=== PATIENT | male | born 1930 | race Caucasian/White ===

== ENCOUNTER 2018-04-27 15:55 | Observation (INO) | payer MEDICARE ==
[~2018-04-27] VITALS: Ht 160 cm; Wt 60.5 kg
[~2018-04-27 15:55] MED LIST: ALBU8I INH; AMLO2.5T OR; ASPI325T PO; CLOP75TA PO; LEVO500T3 OR; LEVO50TA51 PO; LORTA5 PO; LOSA25TA31 PO; MAGN400T PO; METO50TA PO; NITR.4 SL; PRED10PA PO; ROBIDM5S PO; SIMV80TA OR
[2018-04-27 16:05] VITALS: BP 143/65; PULSE 74; RESP 16; TEMP 98.7; O2SAT 91
[2018-04-27] MEDS ORDERED: ALBUAER3 INH (16:42)
[2018-04-27] MEDS ORDERED: METO50TA PO (16:42)
[2018-04-27] MEDS ORDERED: LOVA40TA PO (16:42)
[2018-04-27] MEDS ORDERED: ASPI81CH7 CHEW (16:42)
[2018-04-27] MEDS ORDERED: AMLO2.5T PO (16:42)
[2018-04-27] MEDS ORDERED: COUM5TAB PO (16:42)
[2018-04-27 16:56] LABS: AUTOMATED NEUTROPHIL # 16.7 TH/MM3 (1.8-7.7); BASOPHIL # 0.1 TH/MM3 (0-0.2); BASOPHIL % 0.4 % (0.0-2.0); EOSINOPHIL % 0.1 % (0.0-4.0); HEMATOCRIT 36.5 % (39.0-51.0); LYMPH % 5.1 % (9.0-44.0); MEAN CELL VOLUME 89.8 FL (80.0-100.0); MEAN CORPUSCULAR HEMOGLOBIN 29.5 PG (27.0-34.0); MEAN CORPUSCULAR HGB CONC 32.8 % (32.0-36.0); MEAN PLATELET VOLUME 8.3 FL (7.0-11.0); MONO % 6.8 % (0.0-8.0); MONOCYTE # 1.3 TH/MM3 (0-0.9); NEUT % 87.6 % (16.0-70.0); PLATELET COUNT 273 TH/MM3 (150-450); RED BLOOD COUNT 4.06 MIL/MM3 (4.50-5.90); RED CELL DISTRIBUTION WIDTH 15.5 % (11.6-17.2); WHITE BLOOD COUNT 19.1 TH/MM3 (4.0-11.0)
[2018-04-27 17:02] LABS: INTERNATIONAL NORMALIZED RATIO 2.1 RATIO; PROTHROMBIN TIME - PATIENT 21.4 SEC (9.8-11.6)
--- NOTE | 2018-04-27 17:07 | RADRPT ---
EXAM DATE: 04/27/2018 5:02 PM EDT AGE/SEX: 87 years / Male INDICATIONS: Fall from ladder landed on right shoulder. CLINICAL DATA: This is the patient's initial encounter. Patient reports that signs and symptoms have been present for 1 day and indicates a pain score of 10/10. MEDICAL/SURGICAL HISTORY: None. None. COMPARISON: [facility], CHEST SINGLE AP, 04/23/2013. . FINDINGS: 3 views of the right shoulder demonstrate a fracture through the surgical neck with medial displaceme nt of the distal fragment. Humeral head also appears are rotated approximately 90 degrees. Acromiocla vicular joint is intact with hypertrophic osteoarthritis. There is soft tissue swelling adjacent to t he proximal humerus fracture. Right chest demonstrates no acute abnormality. CONCLUSION: 1. There is a transverse fracture through the surgical neck of the proximal right humerus with media l displacement of the distal fragment and approximately 90 degrees of rotation of the humeral head. T here is adjacent soft tissue swelling. 2. 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 Electronically signed by: Armin Braxton MD 04/27/2018 5:06 PM EDT
[2018-04-27 17:10] LABS: BICARBONATE 24.2 MEQ/L (21.0-32.0); CALCIUM 8.2 MG/DL (8.5-10.1); CREATININE 0.93 MG/DL (0.60-1.30)
--- NOTE | 2018-04-27 17:39 | RADRPT ---
EXAM DATE: 04/27/2018 5:27 PM EDT AGE/SEX: 87 years / Male INDICATIONS: Trauma, fall from ladder CLINICAL DATA: This is the patient's initial encounter. Patient reports that signs and symptoms have been present for 1 day and indicates a pain score of 9/10. MEDICAL/SURGICAL HISTORY: Cardiovascular disease. Hypertension. None. RADIATION DOSE: 56.35 CTDI (mGy) COMPARISON: No prior [facility] exams available for comparison. TECHNIQUE: CT of the head without contrast. Using automated exposure control and adjustment of the mA and/or kV according to patient size, radiation dose was kept as low as reasonably achievable to ob tain optimal diagnostic quality images. FINDINGS: Cerebrum: The ventricles are normal for age. No evidence of midline shift, mass lesion, hemorrhage or acute infarction. No extraaxial fluid collections are seen. Posterior Fossa: The cerebellum and brainstem are intact. The 4th ventricle is midline. The cerebe llopontine angle is unremarkable. Extracranial: The visualized portion of the orbits is intact. Skull: The calvaria is intact. No evidence of skull fracture. CONCLUSION: 1. No acute intracranial abnormality identified. Electronically signed by: Yovani Ribeiro MD 04/27/2018 5:38 PM EDT
[2018-04-27] MEDS ORDERED: PHYTONADIONE 5 MG TAB PO ONE (17:45)
--- NOTE | 2018-04-27 17:49 | PD ---
HPI Chief Complaint: Fall Time Seen by Provider: 16:10 Travel History International Travel<30 days: No Contact w/Intl Traveler<30days: No Traveled to known affect area: No History of Present Illness HPI 87-year-old man, try to change a light bulb above his bed sitting on a ladder when he stepped to the bed the ladder fell over and they both fell to the ground. Hit his head. He complains of severe right shoulder pain and deformity. He is on warfarin. No LOC. Had been feeling well before this. No other complaints. History Past Medical History Narrative Medical CAD, history CABG COPD Hyperlipidemia Hypertension History cholecystectomy, On warfarin Social History Alcohol Use: No Tobacco Use: No (QUIT 30 YRS AGO) Allergies-Medications (Allergen,Severity, Reaction): Coded Allergies: No Known Allergies (Verified Adverse Reaction, Unknown, 04/27/18) Reported Meds & Prescriptions Reported Meds & Active Scripts Active Reported Lovastatin 40 Mg Tab 40 Mg PO DAILY Metoprolol Tartrate 50 Mg Tab 50 Mg PO BID Coumadin (Warfarin) 5 Mg Tab 5 Mg PO DAILY Aspirin Children's (Aspirin) 81 Mg Chew 81 Mg CHEW DAILY Amlodipine (Amlodipine Besylate) 2.5 Mg Tab 2.5 Mg PO DAILY Proair Hfa 8.5 GM Inh (Albuterol Sulfate) 90 Mcg/Act Aer 2 Puff INH Q6H PRN 108 mcg/actuation Review of Systems Except as stated in HPI: all other systems reviewed are Neg Physical Exam Narrative GENERAL: Well-appearing 87-year-old man, no acute distress. SKIN: Focused skin assessment warm/dry. HEAD: Atraumatic. Normocephalic. EYES: Pupils equal and round. No scleral icterus. No injection or drainage. ENT: No nasal bleeding or discharge. Mucous membranes pink and moist. NECK: Trachea midline. No JVD. CARDIOVASCULAR: Regular rate and rhythm. No murmur appreciated. RESPIRATORY: No accessory muscle use. Clear to auscultation. Breath sounds equal bilaterally. GASTROINTESTINAL: Abdomen soft, non-tender, nondistended. Hepatic and splenic margins not palpable. MUSCULOSKELETAL: Deformity of the right shoulder with large hematoma and swelling to the anterior right shoulder. Pain with any range of motion. Distally intact. NEUROLOGICAL: Awake and alert. No obvious cranial nerve deficits. Motor grossly within normal limits. Normal speech. PSYCHIATRIC: Appropriate mood and affect; insight and judgment normal. Data Data Last Documented VS Vital Signs Date Time Temp Pulse Resp B/P (MAP) Pulse Ox O2 Delivery O2 Flow Rate FiO2 04/27/18 16:09 96 Nasal Cannula 2.00 04/27/18 16:05 98.7 74 16 143/65 (91) Orders Orders Ct Brain W/O Iv Contrast(Rout) (04/27/18 ) Complete Blood Count With Diff (04/27/18 16:17) Basic Metabolic Panel (Bmp) (04/27/18 16:17) Prothrombin Time / Inr (Pt) (04/27/18 16:17) Iv Access Insert/Monitor (04/27/18 16:17) Electrocardiogram (04/27/18 ) Shoulder, Limited(2vws) (04/27/18 ) Phytonadione (Mephyton) (04/27/18 17:45) Labs Laboratory Tests Test 04/27/18 16:35 White Blood Count 19.1 TH/MM3 Red Blood Count 4.06 MIL/MM3 Hemoglobin 12.0 GM/DL Hematocrit 36.5 % Mean Corpuscular Volume 89.8 FL Mean Corpuscular Hemoglobin 29.5 PG Mean Corpuscular Hemoglobin Concent 32.8 % Red Cell Distribution Width 15.5 % Platelet Count 273 TH/MM3 Mean Platelet Volume 8.3 FL Neutrophils (%) (Auto) 87.6 % Lymphocytes (%) (Auto) 5.1 % Monocytes (%) (Auto) 6.8 % Eosinophils (%) (Auto) 0.1 % Basophils (%) (Auto) 0.4 % Neutrophils # (Auto) 16.7 TH/MM3 Lymphocytes # (Auto) 1.0 TH/MM3 Monocytes # (Auto) 1.3 TH/MM3 Eosinophils # (Auto) 0.0 TH/MM3 Basophils # (Auto) 0.1 TH/MM3 CBC Comment DIFF FINAL Differential Comment Prothrombin Time 21.4 SEC Prothromb Time International Ratio 2.1 RATIO Blood Urea Nitrogen 17 MG/DL Creatinine 0.93 MG/DL Random Glucose 121 MG/DL Calcium Level 8.2 MG/DL Sodium Level 139 MEQ/L Potassium Level 3.7 MEQ/L Chloride Level 104 MEQ/L Carbon Dioxide Level 24.2 MEQ/L Anion Gap 11 MEQ/L Estimat Glomerular Filtration Rate 77 ML/MIN MDM Medical Decision Making Medical Screen Exam Complete: Yes Emergency Medical Condition: Yes Interpretation(s) Head CT negative. Shoulder x-ray: Transverse fracture of the surgical neck of the proximal humerus with medial displacement distal fragment approximately 90 of rotation of the humeral head. There is adjacent soft tissue swelling. AC joint is intact with hypertrophic osteoarthritis. LABS: CBC is remarkable for moderate leukocytosis. BMP is unremarkable INR is 2.1 Differential Diagnosis Fall, fracture, dislocation, contusion, head injury, other Narrative Course Is an 87-year-old male presents emergency department with severe right shoulder injury. Impressive fracture with deformity and displacement with some abnormal rotation. I spoke with Dr. Nesbitt, on-call for orthopedics. Recommends admission n.p.o. after midnight and reverse INR. Dr. Richard to see in the a.m. May need surgical repair. Otherwise looks well. Pain appears to be for cardiac disease, do not see history of A. fib and family reports that he has had interrogation of his pacer with no A. fib. No history of DVT or PE. Looks otherwise well. Spoke with Dr. Hernandez, will admit patient. Diagnosis Primary Impression: Right humeral fracture Qualified Codes: S42.201A - Unspecified fracture of upper end of right humerus , initial encounter for closed fracture Admitting Information Admitting Physician Requests: Admit Sher Cote MD April 27, 2018 17:49
[2018-04-27] MEDS ORDERED: MORPHINE SULFATE 4 MG/ML INJ IV PUSH PRN (18:00)
[2018-04-27] MEDS ORDERED: ONDANSETRON ODT 4 MG TAB PO PRN (18:00)
[2018-04-27 18:15] VITALS: BP 139/61; PULSE 68; RESP 16; O2SAT 97
[2018-04-27] MEDS ORDERED: PHYTONADIONE 5 MG/SWFI 5 ML ORAL SYR PO ONE (18:30)
[2018-04-27 19:00] VITALS: BP 152/72; PULSE 70; RESP 18; TEMP 97.3; O2SAT 91
[2018-04-27 21:44] VITALS: O2SAT 94
[2018-04-27] MEDS ORDERED: SODIUM CHLORID 0.9% 500 ML IV PRN (21:45)
[2018-04-27] MEDS ORDERED: POVIDONE IODINE 5% (ANTISEPSIS KIT) 4 APPLICATIONS EACH NARE PRN (21:45)
[2018-04-27] MEDS ORDERED: CHLORHEXIDINE GLUCONATE 2 % 1 PACK (2 CLOTHS) TOPICAL PRN (21:45)
[2018-04-27] MEDS ORDERED: METOPROLOL TARTRATE 25 MG TAB PO PRN (21:45)
[2018-04-27] MEDS ORDERED: LACTATED RINGER'S 1000 ML IV PRN (21:45)
--- NOTE | 2018-04-27 21:58 | HHI.HP ---
HPI Service [facility] Primary Care Physician Mya Roche MD Admission Diagnosis Right humeral fracture Chief Complaint: right arm pain s/p fall Travel History International Travel<30 Days: No Contact w/Intl Traveler <30 Da: No Traveled to Known Affected Are: No History of Present Illness 87-year-old man presents to ER status post fall. He was apparently trying to change a light bulb above his bed sitting on a ladder in his bed when he stepped to the bed the ladder fell over and they both fell to the ground. Hit his head. He complains of severe right shoulder pain and deformity. He is on warfarin. No LOC. Had been feeling well before this. No other complaints. Shoulder x-ray reveals significantly angulated proximal humerus fracture. Orthopedics was consulted by ER physician and the education specialist requests patient be admitted to medicine service with orthopedic consult and likely surgical intervention tomorrow. Past Family Social History Past Medical History Angina Atherosclerosis of aorta Atrial fibrillation Chronic DVT CKD stage III CHF COPD Hyperlipidemia Hypertension Hypothyroidism Osteoarthritis of multiple joints Paroxysmal ventricular tachyarrhythmia History of pulmonary embolism Past Surgical History CABG 4 vessels September 2000 Cataract surgery Cholecystectomy Pilonidal cyst resection Vasectomy Tonsillectomy and adenoidectomy TURP Reported Medications Lovastatin 40 Mg Tab 40 Mg PO DAILY Metoprolol Tartrate 50 Mg Tab 50 Mg PO BID Coumadin (Warfarin) 5 Mg Tab 5 Mg PO DAILY Aspirin Children's (Aspirin) 81 Mg Chew 81 Mg CHEW DAILY Amlodipine (Amlodipine Besylate) 5 mg PO DAILY Proair Hfa 8.5 GM Inh (Albuterol Sulfate) 90 Mcg/Act Aer 2 Puff INH Q6H PRN 108 mcg/actuation Advair Diskus 250/50 1 puff twice daily as needed Furosemide 20 mg daily Levothyroxine 50 mcg daily Nitroglycerin 0.4 mg sublingual tablet 1 sublingual as needed for chest pain Vitamin D 1000 units 2 tablets daily Warfarin 2.5 mg daily except 5 mg each Thursday and Thursday Allergies: Coded Allergies: No Known Allergies (Verified Allergy, Unknown, 04/27/18) Family History Mother had coronary artery disease and stroke but overall family history noncontributory at this point Social History 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 SKIN: No rashes, ecchymoses or lesions. Cool and dry. HEAD: Left parietal scalp ecchymosis. Normocephalic. No temporal or scalp tenderness. EYES: Pupils equal round and reactive. Extraocular motions intact. No scleral icterus. No injection or drainage. ENT: Nose without bleeding, purulent drainage or septal hematoma. Throat without erythema, tonsillar hypertrophy or exudate. Uvula midline. Airway patent. NECK: Trachea midline. No JVD or lymphadenopathy. Supple, nontender, no meningeal signs. CARDIOVASCULAR: Regular rate and rhythm without murmurs, gallops, or rubs. RESPIRATORY: Clear to auscultation. Breath sounds equal bilaterally. No wheezes , rales, or rhonchi. GASTROINTESTINAL: Abdomen soft, non-tender, nondistended. No hepato-splenomegaly , or palpable masses. No guarding. MUSCULOSKELETAL: BUE with ecchymosis, right shoulder with edema, ttp and deformity, moves all fingers well, sensation to touch intact all fingers. No calf tenderness. NEUROLOGICAL: Awake and alert. Cranial nerves II through XII intact. Motor and sensory grossly within normal limits. Five out of 5 muscle strength in all muscle groups. Normal speech. Laboratory Laboratory Tests Test 04/27/18 16:35 White Blood Count 19.1 Red Blood Count 4.06 Hemoglobin 12.0 Hematocrit 36.5 Mean Corpuscular Volume 89.8 Mean Corpuscular Hemoglobin 29.5 Mean Corpuscular Hemoglobin Concent 32.8 Red Cell Distribution Width 15.5 Platelet Count 273 Mean Platelet Volume 8.3 Neutrophils (%) (Auto) 87.6 Lymphocytes (%) (Auto) 5.1 Monocytes (%) (Auto) 6.8 Eosinophils (%) (Auto) 0.1 Basophils (%) (Auto) 0.4 Neutrophils # (Auto) 16.7 Lymphocytes # (Auto) 1.0 Monocytes # (Auto) 1.3 Eosinophils # (Auto) 0.0 Basophils # (Auto) 0.1 CBC Comment DIFF FINAL Differential Comment Prothrombin Time 21.4 Prothromb Time International Ratio 2.1 Blood Urea Nitrogen 17 Creatinine 0.93 Random Glucose 121 Calcium Level 8.2 Sodium Level 139 Potassium Level 3.7 Chloride Level 104 Carbon Dioxide Level 24.2 Anion Gap 11 Estimat Glomerular Filtration Rate 77 Result Diagram: 04/27/18 1635 04/27/18 1635 Imaging Last 72 hours Impressions Shoulder X-Ray 04/27/18 0000 Signed Impressions: CONCLUSION: 1. There is a transverse fracture through the surgical neck of the proximal ri ght humerus with medial displacement of the distal fragment and approximately 9 0 degrees of rotation of the humeral head. There is adjacent soft tissue swelli ng. 2. 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 Head CT 04/27/18 0000 Signed Impressions: CONCLUSION: 1. No acute intracranial abnormality identified. Caprini VTE Risk Assessment Caprini VTE Risk Assessment: Mod/High Risk (score >= 2) Caprini Risk Assessment Model Point Value = 1 Point Value = 2 Point Value = 3 Point Value = 5 Age 41-60 Minor surgery BMI > 25 kg/m2 Swollen legs Varicose veins or History of unexplained or recurrent spontaneous Oral contraceptives or hormone replacement Sepsis (< 1 month) Serious lung disease, including pneumonia (< 1 month) Abnormal pulmonary function Acute myocardial infarction Congestive heart failure (< 1 month) History of inflammatory bowel disease Medical patient at bed rest Age 61-74 Arthroscopic surgery Major open surgery (> 45 min) Laparoscopic surgery (> 45 min) Malignancy Confined to bed (> 72 hours) Immobilizing plaster cast Central venous access Age >= 75 History of VTE Family history of VTE Factor V Leiden Prothrombin [id number] Lupus anticoagulant Anticardiolipin antibodies Elevated serum homocysteine Heparin-induced thrombocytopenia Other congenital or acquired thrombophilia Stroke (< 1 month) Elective arthroplasty Hip, pelvis, or leg fracture Acute spinal cord injury (< 1 month) Prophylaxis Regimen Total Risk Factor Score Risk Level Prophylaxis Regimen 0-1 Low Early ambulation 2 Moderate Order ONE of the following: *Sequential Compression Device (SCD) *Heparin 5000 units SQ BID 3-4 Higher Order ONE of the following medications: *Heparin 5000 units SQ TID *Enoxaparin/Lovenox 40 mg SQ daily (WT < 150 kg, CrCl > 30 mL/min) *Enoxaparin/Lovenox 30 mg SQ daily (WT < 150 kg, CrCl > 10-29 mL/min) *Enoxaparin/Lovenox 30 mg SQ BID (WT < 150 kg, CrCl > 30 mL/min) AND/OR *Sequential Compression Device (SCD) 5 or more Highest Order ONE of the following medications: *Heparin 5000 units SQ TID (Preferred with Epidurals) *Enoxaparin/Lovenox 40 mg SQ daily (WT < 150 kg, CrCl > 30 mL/min) *Enoxaparin/Lovenox 30 mg SQ daily (WT < 150 kg, CrCl > 10-29 mL/min) *Enoxaparin/Lovenox 30 mg SQ BID (WT < 150 kg, CrCl > 30 mL/min) AND *Sequential Compression Device (SCD) Assessment and Plan Problem List: (1) Right humeral fracture ICD Codes: S42.301A - Unspecified fracture of shaft of humerus, right arm, initial encounter for closed fracture Status: Acute Plan: Orthopedics consult. Continue pain medication. Management per Ortho. (2) Leukocytosis ICD Codes: D72.829 - Elevated white blood cell count, unspecified Status: Acute Plan: Likely stress reaction due to pain associated with fracture. Will follow up CBC tomorrow. (3) Atrial fibrillation ICD Codes: I48.91 - Unspecified atrial fibrillation Plan: INR therapeutic. INR will be corrected for anticipated surgery. (4) Hypertension ICD Codes: I10 - Essential (primary) hypertension Plan: Continue outpatient meds as tolerated. (5) COPD (chronic obstructive pulmonary disease) ICD Codes: J44.9 - Chronic obstructive pulmonary disease, unspecified Status: Chronic Plan: Duo nebs and supplemental oxygen as needed (6) Hypothyroidism ICD Codes: E03.9 - Hypothyroidism, unspecified Status: Chronic Plan: Continue outpatient meds. TSH was 6.2 in November. Will repeat TSH Code Status full Discussed Condition With Pt, his and ER provider Problem Qualifiers (1) Right humeral fracture: Qualified Codes: S42.201A - Unspecified fracture of upper end of right humerus , initial encounter for closed fracture (2) Atrial fibrillation: Qualified Codes: I48.2 - Chronic atrial fibrillation (3) Hypertension: Qualified Codes: I10 - Essential (primary) hypertension Mukund Hernandez MD PhD April 27, 2018 21:58
[2018-04-27] MEDS ORDERED: RESP: ALBUTEROL 2.5 MG/IPRATROPIUM 0.5 MG NEB (PRN) NEB (22:00)
[2018-04-27] MEDS ORDERED: TEMAZEPAM 15 MG CAP PO SCH (22:30)
[2018-04-27] MEDS ORDERED: KETOROLAC TROMETHAMINE 30 MG/ML (IVP) VIAL IV PUSH SCH (22:30)
[2018-04-28] VITALS (8 sets, daily range): BP systolic 101–145; BP diastolic 52–64; PULSE 62–77; RESP 17–18; TEMP 97.6–98.4; O2SAT 92–99
[2018-04-28] MEDS ORDERED: METOPROLOL TARTRATE 50 MG TAB PO SCH ×2 (06:30→21:00)
--- NOTE | 2018-04-28 06:51 | PD.ORT.PN ---
Subjective Subjective Remarks Fall at home yesterday when changing light bulb. He fell from the second or third round of his ladder. He had a proximal humerus fracture in the right side and also complains about right wrist pain. No other orthopedic complaints. He does have a history of a quadruple bypass and also has an ICD monitor. He states that a few nights ago that the ICD monitor woke him up twice when it fired. He was seeing Dr. Mina as his physical education instructor but now is seeing Dr. Mello This morning his INR is 2.1. Objective Vitals Vital Signs Date Time Temp Pulse Resp B/P (MAP) Pulse Ox O2 Delivery O2 Flow Rate FiO2 04/28/18 03:50 97.7 76 18 113/52 (72) 97 04/28/18 00:03 97.8 76 18 101/54 (70) 94 04/27/18 23:21 18 04/27/18 21:44 Nasal Cannula 2.00 04/27/18 19:20 18 04/27/18 19:00 97.3 70 18 152/72 (98) 91 04/27/18 18:15 68 16 139/61 (87) 97 Room Air 04/27/18 16:09 96 Nasal Cannula 2.00 04/27/18 16:05 98.7 74 16 143/65 (91) 91 I/O 04/27/18 04/27/18 04/27/18 04/28/18 04/28/18 04/28/18 07:00 15:00 23:00 07:00 15:00 23:00 Intake Total 120 ml Balance 120 ml Intake Oral 120 ml # Voids 0 # Bowel Movements 0 Result Diagram: 04/27/18 1635 04/27/18 1635 Other Results Laboratory Tests Test 04/27/18 16:35 Prothromb Time International Ratio 2.1 RATIO Prothrombin Time 21.4 SEC (9.8-11.6) Imaging Last 72 hours Impressions Shoulder X-Ray 04/27/18 0000 Signed Impressions: CONCLUSION: 1. There is a transverse fracture through the surgical neck of the proximal ri ght humerus with medial displacement of the distal fragment and approximately 9 0 degrees of rotation of the humeral head. There is adjacent soft tissue swelli ng. 2. 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 Head CT 04/27/18 0000 Signed Impressions: CONCLUSION: 1. No acute intracranial abnormality identified. Objective Remarks Left upper extremity: Full range of motion neurovascularly intact Bilateral lower extremities full range of motion and neurovascularly intact Right upper extremity: Significant bruising and swelling over shoulder. Skin is intact. Pain to palpation. No pain with elbow palpation or slight movement. He has tenderness over the ulnar styloid and minimal tenderness over the radius. He does have bruising over the wrist. Distally he has intact sensation of the radial ulnar and median nerve distributions with good capillary refills. He is able to fully extend his fingers make a fist Assessment & Plan Assessment and Plan Severely comminuted right proximal humerus fracture Orthotec for sling and swath and nonweightbearing right upper extremity INR is 2.1 so we will resume diet this morning and make n.p.o. after midnight Cardiology will evaluate for surgical risk and for clearance Vitamin K will be given this morning and repeat INR will be obtained this afternoon at 3:00 Both surgical and nonsurgical treatment of the shoulder have been discussed. With the displacement of the shoulder it is unlikely that the shoulder will heal appropriately. Surgical fixation will be either an ORIF or possible shoulder hemiarthroplasty. We need his INR corrected to 1.3 or less to proceed with surgery. Edgardo Lino Jr. April 28, 2018 06:51
[2018-04-28] MEDS ORDERED: PHYTONADIONE 10 MG/ML VIAL SQ ONE (08:00)
[2018-04-28 08:11] LABS: AUTOMATED NEUTROPHIL # 12.5 TH/MM3 (1.8-7.7); BASOPHIL # 0.1 TH/MM3 (0-0.2); BASOPHIL % 0.5 % (0.0-2.0); EOSINOPHIL % 0.3 % (0.0-4.0); HEMATOCRIT 27.5 % (39.0-51.0); HEMOGLOBIN 9.3 GM/DL (13.0-17.0); LYMPHOCYTE # 1.9 TH/MM3 (1.0-4.8); MEAN CELL VOLUME 88.1 FL (80.0-100.0); MEAN CORPUSCULAR HEMOGLOBIN 29.9 PG (27.0-34.0); MEAN CORPUSCULAR HGB CONC 33.9 % (32.0-36.0); MEAN PLATELET VOLUME 8.8 FL (7.0-11.0); MONO % 8.8 % (0.0-8.0); MONOCYTE # 1.4 TH/MM3 (0-0.9); NEUT % 78.4 % (16.0-70.0); PLATELET COUNT 212 TH/MM3 (150-450); RED BLOOD COUNT 3.13 MIL/MM3 (4.50-5.90); RED CELL DISTRIBUTION WIDTH 15.2 % (11.6-17.2); WHITE BLOOD COUNT 15.9 TH/MM3 (4.0-11.0)
[2018-04-28 08:17] LABS: INTERNATIONAL NORMALIZED RATIO 1.5 RATIO; PROTHROMBIN TIME - PATIENT 15.4 SEC (9.8-11.6)
[2018-04-28] MEDS: METOPROLOL TARTRATE 50 MG TAB PO SCH ×2 (08:21→20:58)
--- NOTE | 2018-04-28 08:27 | RADRPT ---
EXAM DATE: 04/28/2018 8:04 AM EDT AGE/SEX: 87 years / Male INDICATIONS: Right wrist pain. Patient fell. CLINICAL DATA: This is the patient's subsequent encounter. Patient reports that signs and symptoms h ave been present for 2 days and indicates a pain score of 6/10. MEDICAL/SURGICAL HISTORY: Chronic obstructive pulmonary disease. Cardiovascular disease. Hyper tension. CABG. Cholecystectomy. COMPARISON: No prior [facility] exams available for comparison. FINDINGS: Extensive vascular calcifications are noted. Bones are osteopenic. Fracture radial styloid is present extending into the radiocarpal joint and reasonable alignment. Ulnar styloid fracture is noted. Carp us intact. CONCLUSION: Osteopenia with nondisplaced intra-articular radial styloid fracture. Nondisplaced ulnar styloid frac ture. Electronically signed by: Brooks Ribeiro MD 04/28/2018 8:25 AM EDT
[2018-04-28] MEDS ORDERED: ACETAMINOPHEN/HYDROcodone 325 MG/5 MG TAB PO PRN ×2 (08:30)
--- NOTE | 2018-04-28 08:54 | MB ---
cc: Yang Richard MD DATE: 04/28/2018 REASON FOR CONSULTATION: Displaced right proximal humerus fracture. CONSULTING PHYSICIAN: Dr. Archibald HISTORY OF PRESENT ILLNESS: Stone is an 87-year-old male who had a mechanical fall. He was trying to change a light bulb above his bed. He was on a step ladder getting onto the bed when he fell. He landed on his right shoulder. He did hit his head. He had severe right shoulder pain. He denies dizziness, syncope, or loss of consciousness. He presented to the emergency room where x-rays reveal a completely displaced right proximal humerus fracture. Currently, his only complaint is his right shoulder. Pain is worse with movement and is improved with rest. He is chronically on Coumadin. PAST MEDICAL HISTORY: Illnesses, coronary artery disease, atrial fibrillation, history of DVT, renal failure, CHF, hypertension, hypothyroidism, history of ventricular tachycardia, history of pulmonary embolism. PAST SURGICAL HISTORY: Coronary artery bypass, cataract surgery, cholecystectomy, vasectomy, tonsillectomy, adenoidectomy. MEDICATIONS: 1. Lovastatin. 2. Metoprolol. 3. Coumadin. 4. Aspirin. 5. Amlodipine. 6. ProAir. 7. Advair. 8. Lasix. 9. Levothyroxine. 10. Nitroglycerin. 11. Vitamin D. 12. Coumadin. ALLERGIES: NO KNOWN DRUG ALLERGIES. FAMILY HISTORY: Positive for coronary artery disease and stroke in his mother. 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 He quit smoking in 1973. He denies alcohol use. He is and lives with his . REVIEW OF SYSTEMS: The patient denies headache, visual changes, neck pain, chest pain, shortness of breath, abdominal pain, nausea, vomiting, recent weight loss, fevers or chills, numbness or tingling of extremities. He complains of right shoulder pain. LABORATORY DATA: The patient has a white blood cell count of 15.9, hematocrit 27.5, platelet count 212. INR is 1.5, potassium 3.7, creatinine is 0.93. IMAGING: X-rays of the right shoulder were reviewed. X-rays reveal a displaced right proximal humerus fracture. PHYSICAL EXAMINATION: GENERAL: The patient is a pleasant 87-year-old male who is in no acute distress. He is awake and alert. He is alert and oriented x 3. He appears well-developed and well-nourished. His is at bedside. VITAL SIGNS: Temperature 97.7, pulse 76, respirations 18, blood pressure 113/52, O2 saturation 97% on 2 liters nasal cannula. HEAD: The patient is normocephalic. EYES: Pupils are equal. NECK: Soft and nontender. The trachea is in the midline. ABDOMEN: Soft, nontender, nondistended. EXTREMITIES: Examination of the right arm reveals significant swelling and bruising around the shoulder. He has pain with any shoulder motion. He has minimal pain on his elbow, wrist or fingers. He has intact sensation in all fingers. Radial pulses are palpable. Examination of the left arm reveals no pain with shoulder, elbow or wrist motion. Skin is intact. Radial pulses palpable. Sensation is intact. Examination of bilateral lower extremities reveals no pain with hip, knee or ankle motion. Skin is intact. Dorsalis pedis pulses are palpable. Sensation intact to both feet. IMPRESSION: 1. Displaced right proximal humerus fracture. 2. History of atrial fibrillation. 3. History of ventricular tachycardia. 4. Pacemaker with defibrillator in place. 5. Anticoagulation with Coumadin. 6. Congestive heart failure. 7. Chronic obstructive pulmonary disease. 8. Hypertension. 9. Possible osteoporosis. PLAN: Treatment options were discussed with the patient. At this point, I discussed surgical and nonsurgical options. Given the displacement of the fracture, I do not think that the patient would likely heal this injury as it is. I gave him the option of conservative treatment to see if fracture will heal versus surgical open reduction internal fixation. He states that the pain is excruciating and he would like to have surgery. Cardiology will be consulted for clearance. The patient will need to have his INR corrected and normalized prior to surgery, risks of surgery include bleeding, infection, injuries to arteries, nerves or blood vessels, nonunion, malunion, painful hardware, need for shoulder replacement, as well as medical complications including blood clot, stroke, heart attack and . All questions were answered. I discussed with him the possibility of open reduction, internal fixation of fracture versus possible shoulder hemiarthroplasty. The risks and benefits of each were discussed and consent was obtained. Postoperatively, I will place the patient on calcium and vitamin D. A mid-level provider in my office, nurse practitioner or PA, may see this patient on a follow-up basis and continue to implement the objective of this plan including: Starting or adjusting medications, injections of muscle, tendon, bursa or joints, cast application, orthotic or brace application, physical therapy, further radiographic studies including x-ray, MRI, CT, ultrasounds or bone scan, vascular studies, neurologic studies, or other specialist consultations, and proceeding with surgical management as appropriate. MD JOSH Bay/REBEKA , 08:34 AM , 08:54 AM
--- NOTE | 2018-04-28 10:40 | MB ---
cc: Jigar Mina MD DATE: 04/28/2018 HISTORY OF PRESENT ILLNESS: This is an 87-year-old gentleman who presents to the hospital after suffering a mechanical fall. He was trying to change a light bulb, fell, struck his shoulder and has a displaced fracture of his right humerus. I have been asked to see him in preop risk stratification for open reduction and internal fixation of his wound. He has a history of atrial fibrillation, paroxysmal ventricular tachycardia, as well as pulmonary emboli in the past. He has also had coronary artery disease with a CABG x 4 in 09/2000. He has actually, from a cardiovascular standpoint, been doing well. He complains of no problems with chest pain or shortness of breath. No lightheadedness or dizziness has been present and over the past 1 to 2 years, he has had no significant problems with ventricular tachycardia. He has been well maintained on Coumadin therapy for anticoagulation, as well as metoprolol, lovastatin, baby aspirin, Advair, furosemide and vitamins. ALLERGIES: NONE. SOCIAL HISTORY: The patient does not smoke or drink. PHYSICAL EXAMINATION: GENERAL: He is awake and alert. He is in some mild distress with his right shoulder pain. VITAL SIGNS: His blood pressure is 115/70, pulse 70 and regular. NECK: There is no neck vein distention. LUNGS: Clear. CARDIOVASCULAR: Reveals a regular rate and rhythm. No significant murmur is noted and there is no gallop. ABDOMEN: Soft. There is no tenderness or organomegaly. ASSESSMENT AND PLAN: The patient is a reasonable risk for surgery. He does have a history of pulmonary emboli and surgery is tentatively scheduled for tomorrow after holding his warfarin to allow his clotting profile to be within normal limits. Certainly I think it would be prudent to begin him on oral anticoagulants such as Pradaxa or Eliquis as soon as possible postoperatively to guard against any possible recurrent pulmonary emboli. I will be happy to follow along with you. MD GI Gibson/REBEKA , 10:22 AM , 10:38 AM
--- NOTE | 2018-04-28 11:15 | HHI.PR ---
Subjective Remarks No new complaints today Pt with right arm in sling, he had vomiting with Morphine IV last night, pain meds changed this morning. Objective Vitals Vital Signs Date Time Temp Pulse Resp B/P (MAP) Pulse Ox O2 Delivery O2 Flow Rate FiO2 04/28/18 08:06 98 Nasal Cannula 2.00 04/28/18 08:00 97.9 77 17 112/56 (74) 93 04/28/18 03:50 97.7 76 18 113/52 (72) 97 04/28/18 00:03 97.8 76 18 101/54 (70) 94 04/27/18 23:21 18 04/27/18 21:44 Nasal Cannula 2.00 04/27/18 19:20 18 04/27/18 19:00 97.3 70 18 152/72 (98) 91 04/27/18 18:15 68 16 139/61 (87) 97 Room Air 04/27/18 16:09 96 Nasal Cannula 2.00 04/27/18 16:05 98.7 74 16 143/65 (91) 91 Result Diagram: 04/28/18 0530 04/27/18 1635 Other Results Laboratory Tests Test 04/27/18 16:35 04/28/18 05:30 White Blood Count 19.1 TH/MM3 15.9 TH/MM3 Red Blood Count 4.06 MIL/MM3 3.13 MIL/MM3 Hemoglobin 12.0 GM/DL 9.3 GM/DL Hematocrit 36.5 % 27.5 % Mean Corpuscular Volume 89.8 FL 88.1 FL Mean Corpuscular Hemoglobin 29.5 PG 29.9 PG Mean Corpuscular Hemoglobin Concent 32.8 % 33.9 % Red Cell Distribution Width 15.5 % 15.2 % Platelet Count 273 TH/MM3 212 TH/MM3 Mean Platelet Volume 8.3 FL 8.8 FL Neutrophils (%) (Auto) 87.6 % 78.4 % Lymphocytes (%) (Auto) 5.1 % 12.0 % Monocytes (%) (Auto) 6.8 % 8.8 % Eosinophils (%) (Auto) 0.1 % 0.3 % Basophils (%) (Auto) 0.4 % 0.5 % Neutrophils # (Auto) 16.7 TH/MM3 12.5 TH/MM3 Lymphocytes # (Auto) 1.0 TH/MM3 1.9 TH/MM3 Monocytes # (Auto) 1.3 TH/MM3 1.4 TH/MM3 Eosinophils # (Auto) 0.0 TH/MM3 0.0 TH/MM3 Basophils # (Auto) 0.1 TH/MM3 0.1 TH/MM3 CBC Comment DIFF FINAL DIFF FINAL Differential Comment Prothrombin Time 21.4 SEC 15.4 SEC Prothromb Time International Ratio 2.1 RATIO 1.5 RATIO Blood Urea Nitrogen 17 MG/DL Creatinine 0.93 MG/DL Random Glucose 121 MG/DL Calcium Level 8.2 MG/DL Sodium Level 139 MEQ/L Potassium Level 3.7 MEQ/L Chloride Level 104 MEQ/L Carbon Dioxide Level 24.2 MEQ/L Anion Gap 11 MEQ/L Estimat Glomerular Filtration Rate 77 ML/MIN Thyroid Stimulating Hormone 3rd Gen 3.440 uIU/ML Imaging Last 72 hours Impressions Shoulder X-Ray 04/27/18 0000 Signed Impressions: CONCLUSION: 1. There is a transverse fracture through the surgical neck of the proximal ri ght humerus with medial displacement of the distal fragment and approximately 9 0 degrees of rotation of the humeral head. There is adjacent soft tissue swelli ng. 2. 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 Head CT 04/27/18 0000 Signed Impressions: CONCLUSION: 1. No acute intracranial abnormality identified. Objective Remarks General: NAD, AAOx3 Chest: CTA Cardiac: Regular Abd: +BS, soft ND/NT Ext: Right UE in sling A/P Problem List: (1) Right humeral fracture ICD Codes: S42.301A - Unspecified fracture of shaft of humerus, right arm, initial encounter for closed fracture Status: Acute Plan: Displaced right humerus fracture s/p mechanical fall - Pt is an 87 y/o male with atrial fibrillation on chronic anticoagulation with Coumadin, paroxysmal ventricular tachycardia, hx of DVT/pulmonary emboli in the past, and coronary artery disease with a CABG x 4 in 09/2000. - Pt presented to the ED at [facility] on 04/27/18 after suffering a mechanical fall. He was trying to change a light bulb, fell, and struck his shoulder - Pt was found to have a displaced fracture of his right humerus. - Orthopedic surgery is following. - They consulted Cardiology for pre-operative clearance for risk stratification for open reduction and internal fixation of his wound. - Pt had vomiting with Morphine IV, pain control changed to [place] 1-2 tablets Q4H PRN pain - IS - Constipation precautions - DVT prophylaxis with SCDs for now (2) Leukocytosis ICD Codes: D72.829 - Elevated white blood cell count, unspecified Status: Acute Plan: - Pts labs at admission with WBC count 19.1 felt to likely be a stress reaction due to pain associated with fracture. - Repeat CBC on 04/28 with WBC count 15.9 (3) Atrial fibrillation ICD Codes: I48.91 - Unspecified atrial fibrillation Plan: - Pt with Jacinto aggarwal on chronic anticoagulation with Coumadin. - INR therapeutic at admission at 2.1 - Pt was given Vitamin K 5mg po x 2 doses and 10mg SQ x 1 - INR 1.5 on 04/28. - Cont. Metoprolol 50mg BID - Monitor BP as it has been low/normal (4) Hypertension ICD Codes: I10 - Essential (primary) hypertension Plan: - Pt continued on metoprolol and BP low/normal - Monitor closely (5) COPD (chronic obstructive pulmonary disease) ICD Codes: J44.9 - Chronic obstructive pulmonary disease, unspecified Status: Chronic Plan: - Duo nebs Q6H PRN - Supplemental oxygen as needed (6) Hypothyroidism ICD Codes: E03.9 - Hypothyroidism, unspecified Status: Chronic Plan: - Pt is on Levothyroxine 50mcg po daily as an outpt, this will be continued. - TSH was 6.2 in November. - Repeat TSH 3.440 on 04/27 Assessment and Plan Patient examined. Assessment and plan formulated with Amber Sevilla PA-C. I agree with the above. reversing inr. going for surgery tomorrow on humerus fx. Problem Qualifiers (1) Right humeral fracture: Qualified Codes: S42.201A - Unspecified fracture of upper end of right humerus , initial encounter for closed fracture (2) Atrial fibrillation: Qualified Codes: I48.2 - Chronic atrial fibrillation (3) Hypertension: Qualified Codes: I10 - Essential (primary) hypertension Amber Sevilla April 28, 2018 11:15 Everardo Archibald MD April 28, 2018 14:57
[2018-04-28] MEDS ORDERED: LEVO50TA4 PO (11:20)
[2018-04-28] MEDS ORDERED: ADVA250A INH (11:20)
--- NOTE | 2018-04-28 14:11 | EKG ---
Date Performed: 04/27/2018 Time Performed: 18:08:18 PTAGE: 87 years EKG: Sinus rhythm WITH OCCASIONAL VENTRICULAR PREMATURE COMPLEXES WITH OCCASIONAL SUPRAVENTRICULAR PREMATURE COMPLEXES ST DEVIATION AND MODERATE T-WAVE ABNORMALITY, CONSIDER INFERIOR ISCHEMIA ABNORMAL ECG PREVIOUS TRACING : 04/22/2013 05.33 DOCTOR: Sher Phan Interpretating Date/Time 04/28/2018 14:10:14
[2018-04-28 18:03] LABS: INTERNATIONAL NORMALIZED RATIO 1.3 RATIO; PROTHROMBIN TIME - PATIENT 13.1 SEC (9.8-11.6)
[2018-04-28] MEDS: BUDESONIDE-FORMOTEROL 160/4.5 MCG INHALER INH SCH (21:56)
[2018-04-29] VITALS (7 sets, daily range): BP systolic 108–192; BP diastolic 55–84; PULSE 52–65; RESP 16–18; TEMP 97.3–98; O2SAT 93–100
[2018-04-29] MEDS: LEVOTHYROXINE SODIUM 50 MCG TAB PO SCH (06:25)
[2018-04-29] MEDS: METOPROLOL TARTRATE 50 MG TAB PO SCH ×2 (06:25→21:00)
--- NOTE | 2018-04-29 06:42 | PD.ORT.PN ---
Subjective Subjective Remarks Resting comfortably. No new complaints. INR level yesterday afternoon draw was 1.3. Objective Vitals Vital Signs Date Time Temp Pulse Resp B/P (MAP) Pulse Ox O2 Delivery O2 Flow Rate FiO2 04/29/18 04:00 97.8 65 18 131/57 (81) 97 04/29/18 00:00 97.9 62 18 108/55 (72) 93 04/28/18 21:56 18 04/28/18 21:45 Nasal Cannula 2.00 04/28/18 19:00 98.4 71 18 134/64 (87) 99 04/28/18 17:16 93 Nasal Cannula 2.00 04/28/18 16:00 97.6 62 18 145/56 (85) 93 04/28/18 12:00 97.8 67 17 105/54 (71) 92 04/28/18 08:06 98 Nasal Cannula 2.00 04/28/18 08:00 97.9 77 17 112/56 (74) 93 I/O 04/28/18 04/28/18 04/28/18 04/29/18 04/29/18 04/29/18 07:00 15:00 23:00 07:00 15:00 23:00 Intake Total 120 ml 850 ml 420 ml Balance 120 ml 850 ml 420 ml Intake Oral 120 ml 850 ml 420 ml # Voids 0 3 5 # Bowel Movements 0 1 0 Result Diagram: 04/28/18 0530 04/27/18 4085 Other Results Laboratory Tests Test 04/28/18 17:44 Prothromb Time International Ratio 1.3 RATIO Prothrombin Time 13.1 SEC (9.8-11.6) Imaging Last 72 hours Impressions Wrist X-Ray 04/28/18 0000 Signed Impressions: CONCLUSION: Osteopenia with nondisplaced intra-articular radial styloid fracture. Nondispla [place]rington ulnar styloid fracture. Shoulder X-Ray 04/27/18 0000 Signed Impressions: CONCLUSION: 1. There is a transverse fracture through the surgical neck of the proximal ri ght humerus with medial displacement of the distal fragment and approximately 9 0 degrees of rotation of the humeral head. There is adjacent soft tissue swelli ng. 2. 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 Head CT 04/27/18 0000 Signed Impressions: CONCLUSION: 1. No acute intracranial abnormality identified. Last 72 hours Impressions Shoulder X-Ray 04/27/18 0000 Signed Impressions: CONCLUSION: 1. There is a transverse fracture through the surgical neck of the proximal ri ght humerus with medial displacement of the distal fragment and approximately 9 0 degrees of rotation of the humeral head. There is adjacent soft tissue swelli ng. 2. 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 Head CT 04/27/18 0000 Signed Impressions: CONCLUSION: 1. No acute intracranial abnormality identified. Objective Remarks Left upper extremity: Full range of motion neurovascularly intact Bilateral lower extremities full range of motion and neurovascularly intact Right upper extremity: Significant bruising and swelling over shoulder. Skin is intact. Pain to palpation. No pain with elbow palpation or slight movement. He has tenderness over the ulnar styloid and minimal tenderness over the radius. He does have bruising over the wrist. Distally he has intact sensation of the radial ulnar and median nerve distributions with good capillary refills. He is able to fully extend his fingers make a fist Assessment & Plan Assessment and Plan Severely comminuted right proximal humerus fracture sling and swath and nonweightbearing right upper extremity INR is 1.3 , last night and redraw was done just a half an hour ago Cardiology has given medical clearance with moderate risk N.p.o. We will plan on surgery this morning for open reduction internal fixation versus right shoulder hemiarthroplasty. We will continue nonoperative treatment of the right radial styloid fracture. He will be splinted postoperatively. Edgardo Lino Jr. April 29, 2018 06:42
[2018-04-29 07:01] LABS: INTERNATIONAL NORMALIZED RATIO 1.1 RATIO; PROTHROMBIN TIME - PATIENT 11.3 SEC (9.8-11.6)
[2018-04-29] MEDS ORDERED: GENTAMICIN SULFATE 80 MG/2 ML VIAL ONE (07:06)
[2018-04-29] MEDS ORDERED: ceFAZolin INJ 1,000 MG VIAL ONE (07:06)
[2018-04-29] MEDS ORDERED: VANCOMYCIN HCL 1000 MG VIAL ONE (07:06)
[2018-04-29] MEDS ORDERED: SODIUM CHLOR 0.9% 250 ML INJ 250 ML ONE (07:07)
[2018-04-29 07:08] LABS: AUTOMATED NEUTROPHIL # 10.5 TH/MM3 (1.8-7.7); BASOPHIL # 0.1 TH/MM3 (0-0.2); BASOPHIL % 0.5 % (0.0-2.0); EOSINOPHIL # 0.2 TH/MM3 (0-0.4); EOSINOPHIL % 1.2 % (0.0-4.0); HEMATOCRIT 24.5 % (39.0-51.0); HEMOGLOBIN 8.3 GM/DL (13.0-17.0); LYMPH % 11.4 % (9.0-44.0); LYMPHOCYTE # 1.5 TH/MM3 (1.0-4.8); MEAN CELL VOLUME 89.8 FL (80.0-100.0); MEAN CORPUSCULAR HEMOGLOBIN 30.3 PG (27.0-34.0); MEAN CORPUSCULAR HGB CONC 33.8 % (32.0-36.0); MEAN PLATELET VOLUME 8.8 FL (7.0-11.0); MONO % 9.3 % (0.0-8.0); MONOCYTE # 1.3 TH/MM3 (0-0.9); NEUT % 77.6 % (16.0-70.0); PLATELET COUNT 171 TH/MM3 (150-450); RED BLOOD COUNT 2.73 MIL/MM3 (4.50-5.90); RED CELL DISTRIBUTION WIDTH 15.5 % (11.6-17.2); WHITE BLOOD COUNT 13.5 TH/MM3 (4.0-11.0)
[2018-04-29 07:17] LABS: BICARBONATE 23.9 MEQ/L (21.0-32.0); CALCIUM 8.1 MG/DL (8.5-10.1); CREATININE 1.38 MG/DL (0.60-1.30); MAGNESIUM 2.4 MG/DL (1.5-2.5)
[2018-04-29] MEDS: BUDESONIDE-FORMOTEROL 160/4.5 MCG INHALER INH SCH ×2 (07:43→20:16)
[2018-04-29] MEDS ORDERED: CALCTAB19 PO (09:07)
[2018-04-29] MEDS ORDERED: VITA500012 PO (09:07)
[2018-04-29] MEDS ORDERED: VITA2000 PO (09:07)
[2018-04-29] MEDS ORDERED: HYDR-3580 PO (09:07)
--- NOTE | 2018-04-29 10:39 | PD.OP ---
cc: Yang Polo MD Operative Report Date of Surgery: April 29, 2018 Preoperative Diagnosis: Displaced right proximal humerus fracture Postoperative Diagnosis: Displaced right proximal humerus fracture, large rotator cuff tear Procedure: Open reduction internal fixation right proximal humerus, repair of supraspinatus rotator cuff tear Anesthesia: General Surgeon: Yang Polo Computer Game Designer(s): RENUKA Arreola PA-C The surgical procedure was assisted by my physician construction assistant. My P.A. presence was necessary throughout this case for the manipulation and positioning of the surgical extremity. My P.A. was assisting me throughout the duration of this procedure. The skill set of a physician construction assistant was medically necessary to complete this procedure. During the surgical case the surgical coder was working at the back table and the physician construction assistant was directly assisting me. Operation and Findings: Implants used: Synthes Plan of activity: Sling and swath, Details of procedure: Patient was seen and evaluated preoperatively. Patient was found to have a displaced proximal humerus fracture. The risks and benefits of surgical and nonsurgical options were discussed in detail and informed consent was obtained for surgery. Patient was brought to the operating room and placed on or table. IV sedation and GETA were administered by anesthesiologist. Antibiotics were given prior to incision. Operative arm and shoulder were prepped with alcohol followed by Hibiclens and draped usual sterile fashion. Timeout procedure was performed. Procedure began with a 5 inch incision over the anterior shoulder. Cephalic vein was identified. A deltopectoral approach was utilized. The fracture was now visualized. Soft tissue was retracted. At this point there was noted to be a large tear of the rotator cuff tendon. The supraspinatus tendon was pulled off of the greater tuberosity. At this point the rotator cuff was repaired. A #5 FiberWire suture was placed into the rotator rotator cuff tendon. The suture was now passed through the greater tuberosity. Suture was tensioned and tied appropriately. Attention was now turned to reduction. Gentle traction was applied. The humeral shaft was reduced to the humeral head. Fracture was manipulated to achieve excellent reduction. Multiplanar fluoroscopy confirmed well aligned fracture. Multiple K wires were used to hold provisional fixation. A Synthes proximal humerus plate was selected. Plate was provisionally held in place K wires. 3.5 cortical screws were used to compress plate to bone. Fluoroscopy confirmed appropriate plate placement and fracture reduction. Multiple locking screws were now placed in the humeral head. Screws were predrilled and premeasured for appropriate length. Care was taken not to penetrate the articular surface. Additional screws were placed in the humeral shaft. The FiberWire suture was passed through the holes of the plate and sutured to the plate for additional stability. Final fluoroscopy revealed well aligned fracture with well-placed hardware. Wound was thoroughly irrigated. Fascia was closed with #1 Vicryl, subcutaneous tissues closed with 3-0 Vicryl, and skin was closed with azeb. Sterile dressings were applied. Patient was placed into a sling. Patient was awakened and transferred to recovery in stable condition. Needle and sponge counts were correct. Yang Polo MD April 29, 2018 10:39
[2018-04-29] MEDS ORDERED: ONDANSETRON HCL 4 MG/2 ML VIAL IVP PRN (10:45)
[2018-04-29] MEDS ORDERED: MORPHINE SULFATE 4 MG/ML INJ IV PUSH PRN (10:45)
[2018-04-29] MEDS ORDERED: diphenhydrAMINE HCL 25 MG CAP PO PRN (10:45)
[2018-04-29] MEDS ORDERED: MIDAZOLAM HCL 2 MG/2 ML VIAL ONE (11:16)
[2018-04-29] MEDS ORDERED: NEOSTIGMINE 5 MG/5 ML SYRINGE IV PUSH ONE (12:00)
[2018-04-29] MEDS ORDERED: LIDOCAINE HCL 1% PF 5 ML SYRINGE OTHER ONE (12:00)
[2018-04-29] MEDS ORDERED: ONDANSETRON HCL 4 MG/2 ML VIAL IV ONE (12:00)
[2018-04-29] MEDS ORDERED: PHENYLEPH/NS 1000 MCG/10 ML SYR IV ONE (12:00)
[2018-04-29] MEDS ORDERED: ROCURONIUM INJ 50 MG/5 ML SYRINGE IV PUSH ONE (12:00)
[2018-04-29] MEDS ORDERED: PROPOFOL 200 MG/20 ML AMP IV ONE (12:00)
[2018-04-29] MEDS ORDERED: DEXAMETHASONE SOD PHOS 4 MG/ML VIAL IV ONE (12:00)
[2018-04-29] MEDS ORDERED: DO NOT ADM ANY ANTICOAGULANT DRUGS PRN (12:00)
[2018-04-29] MEDS ORDERED: GLYCOPYRROLATE 1 MG/5 ML SYRINGE IV PUSH ONE (12:00)
[2018-04-29 12:18] LABS: INTERNATIONAL NORMALIZED RATIO 1.1 RATIO; PROTHROMBIN TIME - PATIENT 11.4 SEC (9.8-11.6)
[2018-04-29] MEDS ORDERED: ERGOCALCIFEROL (VIT D2) 50,000 UNIT CAP PO SCH (13:00)
[2018-04-29] MEDS: ACETAMINOPHEN/HYDROcodone 325 MG/7.5 MG TAB PO PRN ×2 (14:02→17:33)
[2018-04-29] MEDS: CALCIUM/VITAMIN D 250 MG/125 U TAB PO SCH ×2 (15:03→17:33)
[2018-04-29] MEDS: WARFARIN SOD 5 MG TAB PO SCH (15:03)
--- NOTE | 2018-04-29 15:18 | RADRPT ---
EXAM DATE: 04/29/2018 3:07 PM EDT AGE/SEX: 87 years / Male INDICATIONS: ORIF right humeral head fracture. CLINICAL DATA: This is the patient's subsequent encounter. Patient reports that signs and symptoms h ave been present for 3 days and indicates a pain score of Nonresponsive. MEDICAL/SURGICAL HISTORY: . Unobtainable. . Unobtainable. COMPARISON: No prior [facility] exams available for comparison. CONCLUSION: Fluoroscopic images during placement of plate and screws along the right proximal humerus. Electronically signed by: Bao Holm MD 04/29/2018 3:17 PM EDT
--- NOTE | 2018-04-29 17:27 | HHI.PR ---
Subjective Remarks no events overnight Objective Vitals heart reg lung cta abd s/nt ext no edema Vital Signs Date Time Temp Pulse Resp B/P (MAP) Pulse Ox O2 Delivery O2 Flow Rate FiO2 04/29/18 14:44 97 Nasal Cannula 3.00 04/29/18 12:00 97.3 56 16 192/84 (120) 96 04/29/18 12:00 51 19 166/72 (103) 96 Nasal Cannula 2 04/29/18 11:45 58 15 174/70 (104) 95 Nasal Cannula 2 04/29/18 11:30 51 15 157/66 (96) 95 Nasal Cannula 2 04/29/18 11:15 56 14 153/64 (93) 97 Nasal Cannula 2 04/29/18 11:00 98.1 52 15 171/81 (111) 100 Nasal Cannula 2 04/29/18 04:00 97.8 65 18 131/57 (81) 97 04/29/18 00:00 97.9 62 18 108/55 (72) 93 04/28/18 21:56 18 04/28/18 21:45 Nasal Cannula 2.00 04/28/18 19:00 98.4 71 18 134/64 (87) 99 04/29/18 04/29/18 04/30/18 15:00 23:00 07:00 Intake Total 1000 ml Output Total 100 ml Balance 900 ml Other 1000 ml Output Estimated Blood Loss 100 ml Result Diagram: 04/29/18 0615 04/29/18 0615 Imaging Last 72 hours Impressions Shoulder X-Ray 04/27/18 0000 Signed Impressions: CONCLUSION: 1. There is a transverse fracture through the surgical neck of the proximal ri ght humerus with medial displacement of the distal fragment and approximately 9 0 degrees of rotation of the humeral head. There is adjacent soft tissue swelli ng. 2. 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 Head CT 04/27/18 0000 Signed Impressions: CONCLUSION: 1. No acute intracranial abnormality identified. Objective Remarks General: NAD, AAOx3 Chest: CTA Cardiac: Regular Abd: +BS, soft ND/NT Ext: Right UE in sling A/P Problem List: (1) Right humeral fracture ICD Codes: S42.301A - Unspecified fracture of shaft of humerus, right arm, initial encounter for closed fracture Status: Acute Plan: Displaced right humerus fracture s/p mechanical fall - Pt is an 87 y/o male with atrial fibrillation on chronic anticoagulation with Coumadin, paroxysmal ventricular tachycardia, hx of DVT/pulmonary emboli in the past, and coronary artery disease with a CABG x 4 in 09/2000. - [place] [facility] [place] suffering a mechanical fall. He was trying to change a light bulb, fell, and struck his shoulder - Pt was found to have a displaced fracture of his right humerus. - They consulted Cardiology for pre-operative clearance for risk stratification for open reduction and internal fixation of his wound. - Prn morphine and norco - Constipation precautions - DVT prophylaxis with SCDs for nowr - Resume coumadin 04/29: Open reduction internal fixation right proximal humerus, repair of supraspinatus rotator cuff tear Displaced right proximal humerus fracture, large rotator cuff tear (2) Atrial fibrillation ICD Codes: I48.91 - Unspecified atrial fibrillation Status: Chronic Plan: - Pt with Shai. alessia on chronic anticoagulation with Coumadin. reversed (3) Hypertension ICD Codes: I10 - Essential (primary) hypertension Status: Chronic Plan: cont bp meds prn control (4) COPD (chronic obstructive pulmonary disease) ICD Codes: J44.9 - Chronic obstructive pulmonary disease, unspecified Status: Chronic Plan: - Duo nebs Q6H PRN - Supplemental oxygen as needed (5) Hypothyroidism ICD Codes: E03.9 - Hypothyroidism, unspecified Status: Chronic Plan: - Pt is on Levothyroxine 50mcg po daily as an outpt, this will be continued. - TSH was 6.2 in November. - Repeat TSH 3.440 on 04/27 Problem Qualifiers (1) Right humeral fracture: Qualified Codes: S42.201A - Unspecified fracture of upper end of right humerus , initial encounter for closed fracture (2) Atrial fibrillation: Qualified Codes: I48.2 - Chronic atrial fibrillation (3) Hypertension: Qualified Codes: I10 - Essential (primary) hypertension Everardo Archibald MD April 29, 2018 17:27
[2018-04-29] MEDS ORDERED: cloNIDine HCL 0.1 MG TAB PO PRN (17:30)
[2018-04-29] MEDS: ceFAZolin 2 GM PREMIX 50 ML IV SCH (17:33)
[2018-04-29] MEDS: DOCUSATE SODIUM 50 MG/SENNA 8.6 MG TAB PO SCH (20:16)
[2018-04-30] VITALS: BP 130/57; PULSE 57; RESP 18; TEMP 97.9; O2SAT 95
[2018-04-30] MEDS: ceFAZolin 2 GM PREMIX 50 ML IV SCH ×2 (00:43→09:17)
[2018-04-30 04:00] VITALS: BP 151/67; PULSE 61; RESP 18; TEMP 98; O2SAT 96
[2018-04-30 04:54] LABS: PROTHROMBIN TIME - PATIENT 10.2 SEC (9.8-11.6)
[2018-04-30 05:04] LABS: BICARBONATE 25.8 MEQ/L (21.0-32.0); CALCIUM 7.4 MG/DL (8.5-10.1); CREATININE 1.15 MG/DL (0.60-1.30)
[2018-04-30 05:20] LABS: CALCIUM-PROTEIN CORRECTED 8.7 MG/DL (8.5-10.1); TOTAL PROTEIN 4.8 GM/DL (6.4-8.2)
[2018-04-30] MEDS: LEVOTHYROXINE SODIUM 50 MCG TAB PO SCH (05:21)
--- NOTE | 2018-04-30 06:45 | PD.ORT.PN ---
Subjective Subjective Remarks POD 1 ORIF right proximal humerus, splinting of right distal radius for nonoperative distal radial styloid fracture Doing well with minimal pain Objective Vitals Vital Signs Date Time Temp Pulse Resp B/P (MAP) Pulse Ox O2 Delivery O2 Flow Rate FiO2 04/30/18 04:00 98.0 61 18 151/67 (95) 96 04/30/18 00:00 97.9 57 18 130/57 (81) 95 04/29/18 21:11 99 Nasal Cannula 2.00 04/29/18 20:00 97.8 52 18 125/63 (83) 98 04/29/18 16:00 98.0 65 16 111/56 (74) 100 04/29/18 14:44 97 Nasal Cannula 3.00 04/29/18 12:00 97.3 56 16 192/84 (120) 96 04/29/18 12:00 51 19 166/72 (103) 96 Nasal Cannula 2 04/29/18 11:45 58 15 174/70 (104) 95 Nasal Cannula 2 04/29/18 11:30 51 15 157/66 (96) 95 Nasal Cannula 2 04/29/18 11:15 56 14 153/64 (93) 97 Nasal Cannula 2 04/29/18 11:00 98.1 52 15 171/81 (111) 100 Nasal Cannula 2 I/O 04/29/18 04/29/18 04/29/18 04/30/18 04/30/18 04/30/18 07:00 15:00 23:00 07:00 15:00 23:00 Intake Total 420 ml 1000 ml 290 ml Output Total 100 ml 600 ml Balance 420 ml 900 ml -310 ml Intake Oral 420 ml 240 ml IV Total 50 ml Other 1000 ml Output Urine Total 600 ml Estimated Blood Loss 100 ml # Voids 5 1 # Bowel Movements 0 0 Result Diagram: 04/29/18 0615 04/30/18 0356 Other Results Laboratory Tests Test 04/29/18 11:50 04/30/18 03:56 Prothromb Time International Ratio 1.1 RATIO 1.0 RATIO Prothrombin Time 11.4 SEC (9.8-11.6) 10.2 SEC (9.8-11.6) Imaging Last 72 hours Impressions Wrist X-Ray 04/28/18 0000 Signed Impressions: CONCLUSION: Osteopenia with nondisplaced intra-articular radial styloid fracture. Nondispla barrington ulnar styloid fracture. Shoulder X-Ray 04/27/18 Signed Impressions: CONCLUSION: 1. There is a transverse fracture through the surgical neck of the proximal ri ght humerus with medial displacement of the distal fragment and approximately 9 0 degrees of rotation of the humeral head. There is adjacent soft tissue swelli ng. 2. 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 Head CT 04/27/18 Signed Impressions: CONCLUSION: 1. No acute intracranial abnormality identified. Last 72 hours Impressions Shoulder X-Ray 04/27/18 Signed Impressions: CONCLUSION: 1. There is a transverse fracture through the surgical neck of the proximal ri ght humerus with medial displacement of the distal fragment and approximately 9 0 degrees of rotation of the humeral head. There is adjacent soft tissue swelli ng. 2. 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 Head CT 04/27/18 Signed Impressions: CONCLUSION: 1. No acute intracranial abnormality identified. Objective Remarks Left upper extremity: Full range of motion neurovascularly intact Bilateral lower extremities full range of motion and neurovascularly intact Right upper extremity: Significant bruising and swelling over shoulder. Skin is intact. Clean dry dressings intact no pain with elbow palpation or slight movement. Short arm splint in place. distally he has intact sensation of the radial ulnar and median nerve distributions with good capillary refills. He is able to fully extend his fingers make a fist Assessment & Plan Assessment and Plan ORIF right proximal humerus POD 1, nonoperative right radial styloid fracture splinted sling and swath and nonweightbearing right upper extremity Daily dressing changes to shoulder beginning POD 2 Case management for home health care for dressing changes Evaluation for home discharge when safe Follow-up Dr. Richard or [facility] in 2 weeks Edgardo Lino Jr. Apr 30, 2018 06:45
--- NOTE | 2018-04-30 06:47 | HHI.FF ---
Face to Face Verification Diagnosis: (1) Right humeral fracture Physical Therapy Gait training, Safety evaluation Occupational Therapy Right UE Weight Bearing: Non WB Right UE Range of Motion: Pendular Nursing Dressing Changes: Daily dressing change, Xeroform, Coverderm/Primapore I have seen patient Stone Mayers on 04/30/18. My clinical findings support the need for the requested home health care services because: Limited ability to care for self I certify that my clinical findings support that this patient is homebound because: Post-op weakness Edgardo Lino Jr. Apr 30, 2018 06:47
[2018-04-30 08:00] VITALS: BP 141/64; PULSE 60; RESP 16; TEMP 98; O2SAT 97
--- NOTE | 2018-04-30 08:28 | PD.CARD.PN ---
Subjective Subjective Remarks S/P Orif. Feels well Objective Medications Current Medications Medications (Trade) Dose Ordered Sig/Ashley Route Start Time Stop Time Status Last Admin (Zofran Odt) 4 mg Q6H PRN PO 04/27/18 18:00 04/27/18 18:14 Lactated Ringer's 1,000 ml @ 30 mls/hr Q24H PRN IV 04/27/18 21:45 04/30/18 21:44 04/28/18 04:32 Sodium Chloride 500 ml @ 30 mls/hr [id number] PRN IV 04/27/18 21:45 04/30/18 21:44 (Lopressor) 25 mg SPOON MAKER PRN PO 04/27/18 21:45 04/30/18 21:44 (Betadine 5% Antisepsis Kit) 1 applic SPOON MAKER PRN EACH NARE 04/27/18 21:45 04/30/18 21:44 (Chlorhexidine 2% Cloth) 3 pack SPOON MAKER PRN TOPICAL 04/27/18 21:45 04/30/18 21:44 (Duoneb Neb) 1 ampule Q6HR NEB PRN NEB 04/27/18 22:00 (Lopressor) 50 mg BID PO 04/28/18 09:00 04/29/18 21:00 (Synthroid) 50 mcg DAILY@0600 PO 04/29/18 06:00 04/30/18 05:21 (Symbicort 160-4.5 Mcg Inh) 2 puff BID INH 04/28/18 21:00 04/29/18 20:16 (Anat-Colace) 1 tab BID PO 04/29/18 21:00 04/29/18 20:16 Cefazolin Sodium/ Dextrose 50 ml @ 100 mls/hr Q8H IV 04/29/18 17:00 04/30/18 09:29 04/30/18 00:43 ([place] 7.5-325 Mg) 1 tab Q3H PRN PO 04/29/18 10:45 04/29/18 17:33 (Oscal-D 250-125) 250 mg TID PO 04/29/18 13:00 04/29/18 17:33 (Benadryl) 25 mg Q6H PRN PO 04/29/18 10:45 (Morphine Inj) 4 mg Q3H PRN IV PUSH 04/29/18 10:45 (Drisdol) 50,000 units Q7D PO 04/29/18 13:00 04/29/18 15:03 (Vitamin D3) 1,000 units DAILY PO 04/30/18 09:00 (Coumadin) 5 mg DAILY@1600 PO 04/29/18 16:00 04/29/18 15:03 [place] [place]URSING DEPARTME... UNSCH PRN .XX 04/29/18 12:00 04/30/18 11:59 (Catapres) 0.1 mg Q6H PRN PO 04/29/18 17:30 Vital Signs / I&O Vital Signs Date Time Temp Pulse Resp B/P (MAP) Pulse Ox O2 Delivery O2 Flow Rate FiO2 04/30/18 04:00 98.0 61 18 151/67 (95) 96 04/30/18 00:00 97.9 57 18 130/57 (81) 95 04/29/18 21:11 99 Nasal Cannula 2.00 04/29/18 20:00 97.8 52 18 125/63 (83) 98 04/29/18 16:00 98.0 65 16 111/56 (74) 100 04/29/18 14:44 97 Nasal Cannula 3.00 04/29/18 12:00 97.3 56 16 192/84 (120) 96 04/29/18 12:00 51 19 166/72 (103) 96 Nasal Cannula 2 04/29/18 11:45 58 15 174/70 (104) 95 Nasal Cannula 2 04/29/18 11:30 51 15 157/66 (96) 95 Nasal Cannula 2 04/29/18 11:15 56 14 153/64 (93) 97 Nasal Cannula 2 04/29/18 11:00 98.1 52 15 171/81 (111) 100 Nasal Cannula 2 I/O 04/29/18 04/29/18 04/29/18 04/30/18 04/30/18 04/30/18 07:00 15:00 23:00 07:00 15:00 23:00 Intake Total 420 ml 1000 ml 290 ml Output Total 100 ml 600 ml Balance 420 ml 900 ml -310 ml Intake Oral 420 ml 240 ml IV Total 50 ml Other 1000 ml Output Urine Total 600 ml Estimated Blood Loss 100 ml # Voids 5 1 # Bowel Movements 0 0 Laboratory Laboratory Tests Test 04/29/18 11:50 04/30/18 03:56 Prothrombin Time 11.4 SEC 10.2 SEC Prothromb Time International Ratio 1.1 RATIO 1.0 RATIO Blood Urea Nitrogen 23 MG/DL Creatinine 1.15 MG/DL Random Glucose 136 MG/DL Total Protein 4.8 GM/DL Calcium Level 7.4 MG/DL Sodium Level 135 MEQ/L Potassium Level 4.8 MEQ/L Chloride Level 103 MEQ/L Carbon Dioxide Level 25.8 MEQ/L Anion Gap 6 MEQ/L Estimat Glomerular Filtration Rate 60 ML/MIN Protein Corrected Calcium 8.7 MG/DL Assessment and Plan Assessment and Plan Stable Cv. OKto D/C home. OK to resume warfarin. Will arrange PT/INR for Thursday Jigar Mina MD Apr 30, 2018 08:28
[2018-04-30] MEDS: BUDESONIDE-FORMOTEROL 160/4.5 MCG INHALER INH SCH ×2 (09:00→20:39)
[2018-04-30] MEDS: CALCIUM/VITAMIN D 250 MG/125 U TAB PO SCH ×3 (09:17→17:54)
[2018-04-30] MEDS: METOPROLOL TARTRATE 50 MG TAB PO SCH ×2 (09:17→20:39)
[2018-04-30] MEDS: DOCUSATE SODIUM 50 MG/SENNA 8.6 MG TAB PO SCH ×2 (09:17→20:39)
[2018-04-30] MEDS: CHOLECALCIFEROL (VIT D3) 1000 UNIT TAB PO SCH (09:17)
--- NOTE | 2018-04-30 11:10 | HHI.PR ---
Subjective Remarks off balance. Pt recommended snf. family wants snf Objective Vitals heart reg lung cta abd right arm sling ext no edema Vital Signs Date Time Temp Pulse Resp B/P (MAP) Pulse Ox O2 Delivery O2 Flow Rate FiO2 04/30/18 10:04 21 04/30/18 08:00 98.0 60 16 141/64 (89) 97 04/30/18 04:00 98.0 61 18 151/67 (95) 96 04/30/18 00:00 97.9 57 18 130/57 (81) 95 04/29/18 21:11 99 Nasal Cannula 2.00 04/29/18 20:00 97.8 52 18 125/63 (83) 98 04/29/18 16:00 98.0 65 16 111/56 (74) 100 04/29/18 14:44 97 Nasal Cannula 3.00 04/29/18 12:00 97.3 56 16 192/84 (120) 96 04/29/18 12:00 51 19 166/72 (103) 96 Nasal Cannula 2 04/29/18 11:45 58 15 174/70 (104) 95 Nasal Cannula 2 04/29/18 11:30 51 15 157/66 (96) 95 Nasal Cannula 2 04/29/18 11:15 56 14 153/64 (93) 97 Nasal Cannula 2 04/30/18 04/30/18 05/01/18 15:00 23:00 07:00 Output Total 250 ml Balance -250 ml Output Urine Total 250 ml Result Diagram: 04/29/18 0615 04/30/18 0356 Imaging Last 72 hours Impressions Shoulder X-Ray 04/27/18 0000 Signed Impressions: CONCLUSION: 1. There is a transverse fracture through the surgical neck of the proximal ri ght humerus with medial displacement of the distal fragment and approximately 9 0 degrees of rotation of the humeral head. There is adjacent soft tissue swelli ng. 2. 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 Head CT 04/27/18 0000 Signed Impressions: CONCLUSION: 1. No acute intracranial abnormality identified. A/P Problem List: (1) Right humeral fracture ICD Codes: S42.301A - Unspecified fracture of shaft of humerus, right arm, initial encounter for closed fracture Status: Acute Plan: Displaced right humerus fracture s/p mechanical fall - Pt is an 87 y/o male with atrial fibrillation on chronic anticoagulation with Coumadin, paroxysmal ventricular tachycardia, hx of DVT/pulmonary emboli in the past, and coronary artery disease with a CABG x 4 in 09/2000. - Pt presented to the ED at [facility] [place] on [place]/27/18 after suffering a mechanical fall. He was trying to change a light bulb, fell, and struck his shoulder - Pt was found to have a displaced fracture of his right humerus. - They consulted Cardiology for pre-operative clearance for risk stratification for open reduction and internal fixation of his wound. - Prn morphine and norco - Constipation precautions - DVT prophylaxis with SCDs for nowr - Resume coumadin 04/29: Open reduction internal fixation right proximal humerus, repair of supraspinatus rotator cuff tear Displaced right proximal humerus fracture, large rotator cuff tear dc to snf. off balance. family request. (2) Atrial fibrillation ICD Codes: I48.91 - Unspecified atrial fibrillation Status: Chronic Plan: - Pt with A. alessia on chronic anticoagulation with Coumadin. reversed (3) Hypertension ICD Codes: I10 - Essential (primary) hypertension Status: Chronic Plan: cont bp meds prn control (4) COPD (chronic obstructive pulmonary disease) ICD Codes: J44.9 - Chronic obstructive pulmonary disease, unspecified Status: Chronic Plan: - Duo nebs Q6H PRN - Supplemental oxygen as needed (5) Hypothyroidism ICD Codes: E03.9 - Hypothyroidism, unspecified Status: Chronic Plan: - Pt is on Levothyroxine 50mcg po daily as an outpt, this will be continued. - TSH was 6.2 in November. - Repeat TSH 3.440 on 04/27 Problem Qualifiers (1) Right humeral fracture: Qualified Codes: S42.201A - Unspecified fracture of upper end of right humerus , initial encounter for closed fracture (2) Atrial fibrillation: Qualified Codes: I48.2 - Chronic atrial fibrillation (3) Hypertension: Qualified Codes: I10 - Essential (primary) hypertension Everardo Archibald MD Apr 30, 2018 11:10
--- NOTE | 2018-04-30 11:13 | HHI.DCPOC ---
Discharge Care Plan Diagnosis: (1) Right humeral fracture (2) Hypothyroidism (3) Atrial fibrillation (4) Hypertension (5) COPD (chronic obstructive pulmonary disease) Goals to Promote Your Health * To prevent worsening of your condition and complications * To maintain your health at the optimal level Directions to Meet Your Goals Take your medications as prescribed Follow your dietary instruction Follow activity as directed Keep your appointments as scheduled Take your immunizations and boosters as scheduled If your symptoms worsen call your PCP, if no PCP go to Urgent Care Center or Emergency Room Smoking is Dangerous to Your Health. Avoid second hand smoke Call the 24-hour hour crisis hotline for domestic abuse at Everardo Archibald MD Apr 30, 2018 11:13
[2018-04-30 12:00] VITALS: BP 127/61; PULSE 63; RESP 16; TEMP 97.7; O2SAT 93
[2018-04-30] MEDS: ACETAMINOPHEN/HYDROcodone 325 MG/7.5 MG TAB PO PRN ×2 (12:13→17:54)
[2018-04-30] MEDS ORDERED: BISACODYL 10 MG SUPP RECTAL ONE (13:15)
[2018-04-30] MEDS ORDERED: LACTULOSE SYRUP 20 GM/30 ML CUP PO ONE (13:15)
[2018-04-30] MEDS: WARFARIN SOD 5 MG TAB PO SCH (14:41)
[2018-04-30 16:00] VITALS: BP 143/64; RESP 18; TEMP 98; O2SAT 98
[2018-04-30] MEDS ORDERED: LACTULOSE SYRUP 20 GM/30 ML CUP PO PRN (18:00)
[2018-04-30 20:00] VITALS: BP 128/58; PULSE 68; RESP 18; TEMP 98.5; O2SAT 94
[2018-05-01] VITALS: BP 152/89; PULSE 71; RESP 18; TEMP 98.4; O2SAT 94
[2018-05-01] MEDS: LEVOTHYROXINE SODIUM 50 MCG TAB PO SCH (05:32)
[2018-05-01] MEDS ORDERED: BISACODYL 10 MG SUPP RECTAL ONE (06:00)
--- NOTE | 2018-05-01 07:40 | PD.ORT.PN ---
Subjective Subjective Remarks No complaints. Sitting comfortably in bed Objective Vitals Vital Signs Date Time Temp Pulse Resp B/P (MAP) Pulse Ox O2 Delivery O2 Flow Rate FiO2 05/01/18 00:00 98.4 71 18 152/89 (110) 94 04/30/18 20:00 98.5 68 18 128/58 (81) 94 04/30/18 17:49 21 04/30/18 16:00 98.0 18 143/64 (90) 98 04/30/18 12:00 97.7 63 16 127/61 (83) 93 04/30/18 10:04 21 04/30/18 08:00 98.0 60 16 141/64 (89) 97 I/O 04/30/18 04/30/18 04/30/18 05/01/18 05/01/18 05/01/18 07:00 15:00 23:00 07:00 15:00 23:00 Intake Total 290 ml 240 ml Output Total 600 ml 250 ml 650 ml Balance -310 ml -250 ml -410 ml Intake Oral 240 ml 240 ml IV Total 50 ml Output Urine Total 600 ml 250 ml 650 ml # Bowel Movements 0 0 1 Result Diagram: 04/29/18 0615 04/30/18 0356 Other Results Laboratory Tests Test 05/01/18 06:45 Imaging Last 72 hours Impressions Wrist X-Ray 04/28/18 0000 Signed Impressions: CONCLUSION: Osteopenia with nondisplaced intra-articular radial styloid fracture. Nondispla barrington ulnar styloid fracture. Shoulder X-Ray 04/27/18 0000 Signed Impressions: CONCLUSION: 1. There is a transverse fracture through the surgical neck of the proximal ri ght humerus with medial displacement of the distal fragment and approximately 9 0 degrees of rotation of the humeral head. There is adjacent soft tissue swelli ng. 2. 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 Head CT 04/27/18 0000 Signed Impressions: CONCLUSION: 1. No acute intracranial abnormality identified. Last 72 hours Impressions Shoulder X-Ray 04/27/18 0000 Signed Impressions: CONCLUSION: 1. There is a transverse fracture through the surgical neck of the proximal ri ght humerus with medial displacement of the distal fragment and approximately 9 0 degrees of rotation of the humeral head. There is adjacent soft tissue swelli ng. 2. 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 Head CT 04/27/18 0000 Signed Impressions: CONCLUSION: 1. No acute intracranial abnormality identified. Objective Remarks Left upper extremity: Full range of motion neurovascularly intact Bilateral lower extremities full range of motion and neurovascularly intact Right upper extremity: Significant bruising and swelling over shoulder. Skin is intact. Clean dry dressings intact no pain with elbow palpation or slight movement. Short arm splint in place. distally he has intact sensation of the radial ulnar and median nerve distributions with good capillary refills. He is able to fully extend his fingers make a fist Assessment & Plan Assessment and Plan ORIF right proximal humerus POD 2, nonoperative right radial styloid fracture splinted PLAN Sling and swath and nonweightbearing right upper extremity Daily dressing changes to shoulder beginning today shelter facility today Orthopedically clear for discharge Follow-up Dr. Richard or [place] in 2 weeks Popeye Freitas MD May 01, 2018 07:40
[2018-05-01 07:42] LABS: PROTHROMBIN TIME - PATIENT 10.3 SEC (9.8-11.6)
[2018-05-01 08:00] VITALS: BP 157/66; PULSE 64; RESP 18; TEMP 98.4; O2SAT 95
[2018-05-01] MEDS: CALCIUM/VITAMIN D 250 MG/125 U TAB PO SCH (08:43)
[2018-05-01] MEDS: METOPROLOL TARTRATE 50 MG TAB PO SCH (08:44)
[2018-05-01] MEDS: CHOLECALCIFEROL (VIT D3) 1000 UNIT TAB PO SCH (08:44)
[2018-05-01] MEDS: ACETAMINOPHEN/HYDROcodone 325 MG/7.5 MG TAB PO PRN (08:57)
[2018-05-01] MEDS: DOCUSATE SODIUM 50 MG/SENNA 8.6 MG TAB PO SCH (08:58)
[2018-05-01] MEDS: BUDESONIDE-FORMOTEROL 160/4.5 MCG INHALER INH SCH (08:58)
== END 2018-05-01 11:44 ==
LOC: NEPC 15:55 → NEDA 17:50 → INTOOBSV 17:50 → N06A 19:12
PROVIDERS: ADMIT Hospitalist; ATTEND Hospitalist
DX: S42.221A 2-part displaced fracture of surgical neck of right humerus, initial encounter for closed fracture (principal); S46.011A Strain of muscle(s) and tendon(s) of the rotator cuff of right shoulder, initial encounter; S52.514A Nondisplaced fracture of right radial styloid process, initial encounter for closed fracture; S52.614A Nondisplaced fracture of right ulna styloid process, initial encounter for closed fracture; M19.011 Primary osteoarthritis, right shoulder; I48.2 Chronic atrial fibrillation; I25.10 Atherosclerotic heart disease of native coronary artery without angina pectoris; I13.0 Hypertensive heart and chronic kidney disease with heart failure and stage 1 through stage 4 chronic kidney disease, or unspecified chronic kidney disease; I50.9 Heart failure, unspecified; N18.3 Chronic kidney disease, stage 3 (moderate); J44.9 Chronic obstructive pulmonary disease, unspecified; I49.3 Ventricular premature depolarization; E03.9 Hypothyroidism, unspecified; E78.5 Hyperlipidemia, unspecified; D72.829 Elevated white blood cell count, unspecified; M85.80 Other specified disorders of bone density and structure, unspecified site; Z86.711 Personal history of pulmonary embolism; Z95.1 Presence of aortocoronary bypass graft; Z79.899 Other long term (current) drug therapy; Z79.82 Long term (current) use of aspirin; Z79.01 Long term (current) use of anticoagulants; Z87.891 Personal history of nicotine dependence; W18.30XA Fall on same level, unspecified, initial encounter
CPT/HCPCS: 01630; 23410; 23615; 70450; 73030; 73110; 76000; 80048; 83735; 84155; 84443; 85025; 85610; 86850; 86900; 86901; 93005; 96365; 96375; 96376; 97110; 97162; 97166; 97530; 97535; 99285; C1713; G0378; G8987; G8988; J0690; J1100; J1580; J1885; J2250; J2270; J2370; J2405; J2710; J3010; J3370; J3430; J7050; J7120

== ENCOUNTER 2018-05-10 16:31 | Inpatient (IN) | payer MEDICARE ==
[~2018-05-10] VITALS: Ht 160 cm; Wt 60.4 kg
[~2018-05-10 16:31] MED LIST changes: +ADVA250A INH; -ALBU8I INH; +ALBUAER3 INH; -AMLO2.5T OR; +AMLO2.5T PO; -ASPI325T PO; +ASPI81CH7 CHEW; +CALCTAB19 PO; -CLOP75TA PO; +COUM5TAB PO; +HYDR-3580 PO; -LEVO500T3 OR; +LEVO50TA4 PO; -LEVO50TA51 PO; -LORTA5 PO; -LOSA25TA31 PO; +LOVA40TA PO; -MAGN400T PO; -NITR.4 SL; -PRED10PA PO; -ROBIDM5S PO; -SIMV80TA OR; +VITA2000 PO; +VITA500012 PO
[2018-05-10 17:00] VITALS: BP 133/64; PULSE 76; RESP 16; TEMP 97.6; O2SAT 98
--- NOTE | 2018-05-10 18:24 | PD ---
HPI Chief Complaint: Abnormal Results Time Seen by Provider: 18:08 Travel History International Travel<30 days: No Contact w/Intl Traveler<30days: No Traveled to known affect area: No History of Present Illness HPI 87 yo male here for evaluation of abnormal blood work. Patient was recently admited for humerus fracture that required surgery and is currently on rehab. Blood work done today and showed INR in the 7s and H/H that is lower for him . patient takes coumadin. 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 He denies any medical problems and has no symptoms. No weakness. Has bruising and swelling to the right humerus. Denies bleeding. No dark stools. No allergies. PFSH Past Medical History Cancer: No Cardiovascular Problems: Yes (CABG X 4) High Cholesterol: Yes Diabetes: No Diminished Hearing: No Hepatitis: No Hiatal Hernia: No Hypertension: Yes Respiratory: Yes (COPD) Thyroid Disease: Yes Past Surgical History Abdominal Surgery: Yes (CHOLECYSTECTOMY) Cardiac Surgery: Yes (BYPASS SURGERY 11 YEARS AGO) Cholecystectomy: Yes (GALLBLADDER REMOVED A CHILD) Coronary Artery Bypass Graft: Yes Ear Surgery: No Endocrine Surgery: No Eye Surgery: Yes (CATARACT RIGHT EYE) Genitourinary Surgery: No Gynecologic Surgery: No Oral Surgery: No Pacemaker: No Thoracic Surgery: No Tonsillectomy: Yes ( A CHILD) Other Surgery: Yes (HIANATAL CYST REMOVAL) Social History Alcohol Use: No Tobacco Use: No (QUIT 30 YRS AGO) Substance Use: No Allergies-Medications (Allergen,Severity, Reaction): Coded Allergies: No Known Allergies (Verified Allergy, Unknown, 04/27/18) Reported Meds & Prescriptions Reported Meds & Active Scripts Active Calcium 600+D 200 (Calcium Carbonate-Vitamin D) 600-200 Mg-Unit Tab 1 Tab PO BID Vitamin D3 (Cholecalciferol) 2,000 Unit Cap 2,000 Units PO DAILY Ergocalciferol 50,000 Unit Cap 50,000 Units PO Q7D Hydrocodone-Acetaminophen 7.5 Mg-325 Mg Tab 1 Tab PO Q4H PRN Reported Advair Diskus Inh (Fluticasone-Salmeterol Inh) 250-50 Mcg/Blist Aer 1 Puff INH BID Rinse mouth after use. Levothyroxine (Levothyroxine Sodium) 50 Mcg Tab 50 Mcg PO DAILY Lovastatin 40 Mg Tab 40 Mg PO DAILY Metoprolol Tartrate 50 Mg Tab 50 Mg PO BID Coumadin (Warfarin) 5 Mg Tab 5 Mg PO DAILY Aspirin Children's (Aspirin) 81 Mg Chew 81 Mg CHEW DAILY Amlodipine (Amlodipine Besylate) 2.5 Mg Tab 2.5 Mg PO DAILY Proair Hfa 8.5 GM Inh (Albuterol Sulfate) 90 Mcg/Act Aer 2 Puff INH Q6H PRN 108 mcg/actuation Review of Systems Except as stated in HPI: all other systems reviewed are Neg Physical Exam Narrative GENERAL: SKIN: Warm and dry. HEAD: Atraumatic. Normocephalic. EYES: Pupils equal and round. No scleral icterus. No injection or drainage. ENT: No nasal bleeding or discharge. Mucous membranes pink and moist. Tongue is midline. No uvula deviation. NECK: Trachea midline. No JVD. CARDIOVASCULAR: Regular rate and rhythm. No murmurs, S3, S4. RESPIRATORY: No accessory muscle use. Clear to auscultation. Breath sounds equal bilaterally. GASTROINTESTINAL: Abdomen soft, non-tender, nondistended. Hepatic and splenic margins not palpable. MUSCULOSKELETAL: Extremities without clubbing, cyanosis, or edema. No obvious deformities. Splint to right arm. Bruising noted to the shoulder and arm. Full ROM of the upper and lower extremities otherwise. 2+ pulses. NEUROLOGICAL: Awake and alert. No obvious cranial nerve deficits. Motor grossly within normal limits. Five out of 5 muscle strength in the arms and legs. Normal speech. PSYCHIATRIC: Appropriate mood and affect; insight and judgment normal. Data Data Last Documented VS Vital Signs Date Time Temp Pulse Resp B/P (MAP) Pulse Ox O2 Delivery O2 Flow Rate FiO2 05/10/18 17:00 97.6 76 16 133/64 (87) 98 Orders Orders Electrocardiogram (05/10/18 18:03) Complete Blood Count With Diff (05/10/18 18:) Comprehensive Metabolic Panel (05/10/18 18:03) Prothrombin Time / Inr (Pt) (05/10/18 18:03) Act Partial Throm Time (Ptt) (05/10/18 18:03) Blood Culture (05/10/18 18:03) Magnesium (Mg) (05/10/18 18:03) Iv Access Insert/Monitor (05/10/18 18:03) Ecg Monitoring (05/10/18 18:03) Oximetry (05/10/18 18:03) Type And Screen (05/10/18 18:03) MDM Medical Decision Making Medical Screen Exam Complete: Yes Emergency Medical Condition: Yes Medical Record Reviewed: Yes Differential Diagnosis abnormal labs vs anemia vs gi bleed vs coagulopathy vs bleeding Narrative Course 87 yo male that presents to the ED for evaluation of abnormal labs. Properly examined. No rectal could be done as patient was seen in triage area with no privacy to perform the test. Labs ordered and ED nurse aware that patient needs to be placed in a room as soon as possible for further evaluation. Case will be signed out to incoming provider pending disposition and plan. Don Nesbitt May 10, 2018 18:24
[2018-05-10 18:42] VITALS: BP 166/69; PULSE 71; RESP 24; O2SAT 96
[2018-05-10] MEDS ORDERED: FERR325T18 PO (18:52)
[2018-05-10 19:00] VITALS: BP 128/74; PULSE 79; RESP 16; O2SAT 97
--- NOTE | 2018-05-10 19:13 | PD ---
Physical Exam Date Seen by Provider: May 10, 2018 Narrative 87-year-old male presents emergency department from his rehab facility for concerns of low hemoglobin and elevated INR. Patient suspects that there may be an issue with the machine and strips because of the technique that they are using. He denies abdominal pain, bright red bleeding, melena. He actually has no complaints today. Patient takes Coumadin for atrial fibrillation. Labs are significant for H&H 8.1/25.3, WBC 16.9, INR 5.0, Review of the EMR: 04/29/2018 H/H 8.3/24.5, 13.5 WBC, INR 1.0. I spoke with my attending, Dr. Garibay, who recommended CT abdomen/pelvis and CXR to evaluate for intraabdominal bleeding. Last Impressions Chest X-Ray 05/10/18 0000 Signed Impressions: CONCLUSION: Slight right lung base atelectasis and/or infiltrate is seen. Abdomen/Pelvis CT 05/10/18 0000 Signed Impressions: CONCLUSION: 1. Cystic mass in the head of the pancreas with questionable separate area in the region of the uncinate process could be benign cysts such as a pseudocyst, however cystic neoplasm is not excluded at this time. 2. Hepatic, renal cysts and borderline AAA. Vitamin K 5mg administered for supratherapeutic INR and likely GIB. Rocephin and azithromycin administered for developing pneumonia. Pt will be admitted for observation, trending of INR, and stabilization of H&H. He will be treated for developing right-sided pneumonia. I discussed the findings of the chest x-ray and CT abdomen pelvis with the family and patient. They agreed with the plan to be admitted and monitor labs. Data Data Last Documented VS Vital Signs Date Time Temp Pulse Resp B/P (MAP) Pulse Ox O2 Delivery O2 Flow Rate FiO2 05/10/18 18:42 71 24 166/69 (101) 96 Room Air 05/10/18 17:00 97.6 Orders Orders Electrocardiogram (05/10/18 18:03) Complete Blood Count With Diff (05/10/18 18:03) Comprehensive Metabolic Panel (05/10/18 18:03) Prothrombin Time / Inr (Pt) (05/10/18 18:03) Act Partial Throm Time (Ptt) (05/10/18 18:03) Blood Culture (05/10/18 18:03) Magnesium (Mg) (05/10/18 18:03) Iv Access Insert/Monitor (05/10/18 18:03) Ecg Monitoring (05/10/18 18:03) Oximetry (05/10/18 18:03) Type And Screen (05/10/18 18:03) Ct Abd/Pel W/O Iv Contrast (05/10/18 ) Urinalysis - C+S If Indicated (05/10/18 19:51) Chest, Single Ap (05/10/18 ) Ceftriaxone Inj (Rocephin Inj) (05/10/18 21:15) Azithromycin Inj (Zithromax Inj) (05/10/18 21:15) Phytonadione Liq (Mephyton Liq) (05/10/18 21:30) Admit Order (Ed Use Only) (05/10/18 21:33) Admit To Inpatient (05/10/18 ) Inpatient Certification (05/10/18 ) Vital Signs (Adult) CONCHITA.Q4H (05/10/18 21:34) Activity Oob With Assistance (05/10/18 21:34) Consult Pt Eval & Treat (05/10/18 21:34) Complete Blood Count With Diff (05/11/18 06:00) Basic Metabolic Panel (Bmp) (05/11/18 06:00) Prothrombin Time / Inr (Pt) (05/11/18 06:00) Labs Laboratory Tests Test 05/10/18 18:55 05/10/18 21:35 White Blood Count 16.9 TH/MM3 Red Blood Count 2.83 MIL/MM3 Hemoglobin 8.1 GM/DL Hematocrit 25.3 % Mean Corpuscular Volume 89.4 FL Mean Corpuscular Hemoglobin 28.7 PG Mean Corpuscular Hemoglobin Concent 32.1 % Red Cell Distribution Width 15.8 % Platelet Count 463 TH/MM3 Mean Platelet Volume 7.5 FL Neutrophils (%) (Auto) 80.6 % Lymphocytes (%) (Auto) 10.9 % Monocytes (%) (Auto) 6.5 % Eosinophils (%) (Auto) 1.2 % Basophils (%) (Auto) 0.8 % Neutrophils # (Auto) 13.6 TH/MM3 Lymphocytes # (Auto) 1.9 TH/MM3 Monocytes # (Auto) 1.1 TH/MM3 Eosinophils # (Auto) 0.2 TH/MM3 Basophils # (Auto) 0.1 TH/MM3 CBC Comment DIFF FINAL Differential Comment Prothrombin Time 50.2 SEC Prothromb Time International Ratio 5.0 RATIO Activated Partial Thromboplast Time 48.2 SEC Blood Urea Nitrogen 16 MG/DL Creatinine 0.70 MG/DL Random Glucose 86 MG/DL Total Protein 6.2 GM/DL Albumin 2.4 GM/DL Calcium Level 8.1 MG/DL Magnesium Level 2.4 MG/DL Alkaline Phosphatase 83 U/L Aspartate Amino Transf (AST/SGOT) 38 U/L Alanine Aminotransferase (ALT/SGPT) 22 U/L Total Bilirubin 1.4 MG/DL Sodium Level 136 MEQ/L Potassium Level 4.9 MEQ/L Chloride Level 105 MEQ/L Carbon Dioxide Level 22.5 MEQ/L Anion Gap 9 MEQ/L Estimat Glomerular Filtration Rate 107 ML/MIN MDM Supervised Visit with CHANDRIKA: Yes HemaPrompt Test Point of Care Internal Pos. & Neg. Controls: Passed Fecal Specimen Occult Blood: Positive (black stools, no BRB) Diagnosis Primary Impression: Melena Additional Impressions: Anemia Qualified Codes: D64.9 - Anemia, unspecified Supratherapeutic INR Pancreatic cyst Pneumonia Qualified Codes: J18.1 - Lobar pneumonia, unspecified organism Admitting Information Admitting Physician Requests: Observation Condition: Stable Marian Ang May 10, 2018 19:13
[2018-05-10 19:22] LABS: AUTOMATED NEUTROPHIL # 13.6 TH/MM3 (1.8-7.7); BASOPHIL # 0.1 TH/MM3 (0-0.2); BASOPHIL % 0.8 % (0.0-2.0); EOSINOPHIL # 0.2 TH/MM3 (0-0.4); EOSINOPHIL % 1.2 % (0.0-4.0); HEMATOCRIT 25.3 % (39.0-51.0); HEMOGLOBIN 8.1 GM/DL (13.0-17.0); LYMPH % 10.9 % (9.0-44.0); LYMPHOCYTE # 1.9 TH/MM3 (1.0-4.8); MEAN CELL VOLUME 89.4 FL (80.0-100.0); MEAN CORPUSCULAR HEMOGLOBIN 28.7 PG (27.0-34.0); MEAN CORPUSCULAR HGB CONC 32.1 % (32.0-36.0); MEAN PLATELET VOLUME 7.5 FL (7.0-11.0); MONO % 6.5 % (0.0-8.0); MONOCYTE # 1.1 TH/MM3 (0-0.9); NEUT % 80.6 % (16.0-70.0); PLATELET COUNT 463 TH/MM3 (150-450); RED BLOOD COUNT 2.83 MIL/MM3 (4.50-5.90); RED CELL DISTRIBUTION WIDTH 15.8 % (11.6-17.2); WHITE BLOOD COUNT 16.9 TH/MM3 (4.0-11.0)
[2018-05-10 19:34] LABS: ALKALINE PHOSPHATASE 83 U/L (45-117); ALT (GPT) 22 U/L (12-78); PROTHROMBIN TIME - PATIENT 50.2 SEC (9.8-11.6); TOTAL BILIRUBIN ADULT 1.4 MG/DL (0.2-1.0); TOTAL PROTEIN 6.2 GM/DL (6.4-8.2)
[2018-05-10 19:45] LABS: ALBUMIN 2.4 GM/DL (3.4-5.0); AST (GOT) 38 U/L (15-37); BICARBONATE 22.5 MEQ/L (21.0-32.0); BLOOD UREA NITROGEN 16 MG/DL (7-18); CALCIUM 8.1 MG/DL (8.5-10.1); CHLORIDE 105 MEQ/L (98-107); GLOMERULAR FILTRATION RATE 107 ML/MIN (>89); GLUCOSE,RANDOM 86 MG/DL (74-106); MAGNESIUM 2.4 MG/DL (1.5-2.5); SODIUM (NA) 136 MEQ/L (136-145)
--- NOTE | 2018-05-10 19:56 | PD ---
Physical Exam Date Seen by Provider: May 10, 2018 Data Data Last Documented VS Vital Signs Date Time Temp Pulse Resp B/P (MAP) Pulse Ox O2 Delivery O2 Flow Rate FiO2 05/10/18 18:42 71 24 166/69 (101) 96 Room Air 05/10/18 17:00 97.6 Orders Orders Electrocardiogram (05/10/18 18:03) Complete Blood Count With Diff (05/10/18 18:03) Comprehensive Metabolic Panel (05/10/18 18:03) Prothrombin Time / Inr (Pt) (05/10/18 18:03) Act Partial Throm Time (Ptt) (05/10/18 18:03) Blood Culture (05/10/18 18:03) Magnesium (Mg) (05/10/18 18:03) Iv Access Insert/Monitor (05/10/18 18:03) Ecg Monitoring (05/10/18 18:) Oximetry (05/10/18 18:03) Type And Screen (05/10/18 18:03) Ct Abd/Pel W/O Iv Contrast (05/10/18 ) Urinalysis - C+S If Indicated (05/10/18 19:51) Chest, Single Ap (05/10/18 ) Ceftriaxone Inj (Rocephin Inj) (05/10/18 21:15) Azithromycin Inj (Zithromax Inj) (05/10/18 21:15) Phytonadione Liq (Mephyton Liq) (05/10/18 21:30) Admit Order (Ed Use Only) (05/10/18 21:33) Admit To Inpatient (05/10/18 ) Inpatient Certification (05/10/18 ) Vital Signs (Adult) CONCHITA.Q4H (05/10/18 21:34) Activity Oob With Assistance (05/10/18 21:34) Consult Pt Eval & Treat (05/10/18 21:34) Complete Blood Count With Diff (05/11/18 06:00) Basic Metabolic Panel (Bmp) (05/11/18 06:00) Prothrombin Time / Inr (Pt) (05/11/18 06:00) Albuterol Hfa Inh (Proair Hfa Inh) (05/10/18 21:45) Amlodipine (Norvasc) (05/11/18 09:00) Pravastatin (Pravachol) (05/11/18 09:00) Metoprolol Tartrate (Lopressor) (05/11/18 09:00) (Nf) Calcium Carbonate-Vitamin D (Calciu (05/11/18 09:00) (Nf) Fluticasone-Salmeterol Inh (Advair (05/11/18 09:00) Labs Laboratory Tests Test 05/10/18 18:55 White Blood Count 16.9 TH/MM3 Red Blood Count 2.83 MIL/MM3 Hemoglobin 8.1 GM/DL Hematocrit 25.3 % Mean Corpuscular Volume 89.4 FL Mean Corpuscular Hemoglobin 28.7 PG Mean Corpuscular Hemoglobin Concent 32.1 % Red Cell Distribution Width 15.8 % Platelet Count 463 TH/MM3 Mean Platelet Volume 7.5 FL Neutrophils (%) (Auto) 80.6 % Lymphocytes (%) (Auto) 10.9 % Monocytes (%) (Auto) 6.5 % Eosinophils (%) (Auto) 1.2 % Basophils (%) (Auto) 0.8 % Neutrophils # (Auto) 13.6 TH/MM3 Lymphocytes # (Auto) 1.9 TH/MM3 Monocytes # (Auto) 1.1 TH/MM3 Eosinophils # (Auto) 0.2 TH/MM3 Basophils # (Auto) 0.1 TH/MM3 CBC Comment DIFF FINAL Differential Comment Prothrombin Time 50.2 SEC Prothromb Time International Ratio 5.0 RATIO Activated Partial Thromboplast Time 48.2 SEC Blood Urea Nitrogen 16 MG/DL Creatinine 0.70 MG/DL Random Glucose 86 MG/DL Total Protein 6.2 GM/DL Albumin 2.4 GM/DL Calcium Level 8.1 MG/DL Magnesium Level 2.4 MG/DL Alkaline Phosphatase 83 U/L Aspartate Amino Transf (AST/SGOT) 38 U/L Alanine Aminotransferase (ALT/SGPT) 22 U/L Total Bilirubin 1.4 MG/DL Sodium Level 136 MEQ/L Potassium Level 4.9 MEQ/L Chloride Level 105 MEQ/L Carbon Dioxide Level 22.5 MEQ/L Anion Gap 9 MEQ/L Estimat Glomerular Filtration Rate 107 ML/MIN [facility] Medical Record Reviewed: Yes Supervised Visit with CHANDRIKA: Yes Narrative Course I, Dr. Garibay, have reviewed the advance practice practitioner's documentation and am in agreement, met with the patient face to face, made the diagnosis, and the medical decision making was done by me. *My assessment and Findings: Patient is an 87-year-old male who presents the emergency room for evaluation of elevated white blood cell count as well as elevated INR. Patient reports that he had shoulder and his left surgery on Thursday, reports that he is currently at a rehab facility. 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 Patient unsure why he is in the emergency room. Patient reports that he has had a nonproductive cough for very long time, reports that he has history of a right lung which is "." Patient denies any abdominal pain, denies any nausea vomiting or diarrhea. Patient with no complaints at this time. Patient's hemoglobin is 8.1, patient has been typed and screened. Patient does have melena on rectal exam. INR is 5.0, WBC 16.9 -this could be due to a stress reaction from recent surgery on Thursday , he is complaining of a cough, x-ray of the chest was ordered, he has been pancultured, UA was also ordered. Ultimately, patient understands need for admission to the hospital for workup of GI bleed. CBC & BMP Diagram 05/10/18 18:55 Total Protein 6.2 L, Albumin 2.4 L, Calcium Level 8.1 L, Magnesium Level 2.4, Alkaline Phosphatase 83, Aspartate Amino Transf (AST/SGOT) 38 H, Alanine Aminotransferase (ALT/SGPT) 22, Total Bilirubin 1.4 H Last Impressions Chest X-Ray 05/10/18 0000 Signed Impressions: CONCLUSION: Slight right lung base atelectasis and/or infiltrate is seen. Abdomen/Pelvis CT 05/10/18 0000 Signed Impressions: CONCLUSION: 1. Cystic mass in the head of the pancreas with questionable separate area in the region of the uncinate process could be benign cysts such as a pseudocyst, however cystic neoplasm is not excluded at this time. 2. Hepatic, renal cysts and borderline AAA. Patient with a white count of 16.9, patient was found to have a right lung infiltrate versus atelectasis, given his elevated white blood cell count and cough, will treat him for pneumonia. Patient was pancultured. As per his INR 5.0, patient was given 5 mg of vitamin K p.o. as he is also suffering from a GI bleed. Patient will be admitted to the hospital at this time. Diagnosis Primary Impression: Melena Additional Impressions: GI bleed Bleeding on Coumadin Pneumonia Admitting Information Admitting Physician Requests: Admit Amber Garibay DO May 10, 2018 19:56
--- NOTE | 2018-05-10 20:34 | RADRPT ---
EXAM DATE: 05/10/2018 8:22 PM EDT AGE/SEX: 87 years / Male INDICATIONS: Blood in stool. CLINICAL DATA: This is the patient's initial encounter. Patient reports that signs and symptoms have been present for 1 day and indicates a pain score of 5/10. MEDICAL/SURGICAL HISTORY: Cardiovascular disease. Hypertension. . RADIATION DOSE: 8.00 CTDI (mGy) COMPARISON: No prior exams available for comparison. TECHNIQUE: Multiple contiguous axial images were obtained through the abdomen. Images were obtained using multiple row detector helical technique. Using dose reduction techniques, radiation dose was ke pt as low as reasonably achievable to obtain optimal diagnostic quality images. FINDINGS: Abdomen CT: The spleen, adrenals are unremarkable. There is a low attenuating mainly cystic mass in the head of t he pancreas measures 3.1 cm in size. There may be a separate mass in the region of the uncinate proce ss measures 1.7 cm. There are simple cysts in the left kidney the largest measures 6.2 cm on the left and the right kidney has calcifications within it in right lower pole may be vascular or tiny stones largest measures 2 to 3 mm in size. There is evidence for prior cholecystectomy. There is no evidenc e for any appreciable pathological adenopathy, free fluid, or bowel obstruction. There are atheroscle rotic calcifications involving the aorta and iliac arteries chronic in nature. There are multiple cys ts in the liver the largest measures 4.4 cm. There is a tiny right pleural effusion and mild atelecta sis in both lung bases. 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 Pelvic CT: There is no evidence for mass, abscess formation, or any significant adenopathy within the pelvis. Th ere is moderate amount of stool throughout the colon with scattered diverticuli. CONCLUSION: 1. Cystic mass in the head of the pancreas with questionable separate area in the region of the unci michelle process could be benign cysts such as a pseudocyst, however cystic neoplasm is not excluded at t his time. 2. Hepatic, renal cysts and borderline AAA. Electronically signed by: Lauryn Rosales MD 05/10/2018 8:33 PM EDT
--- NOTE | 2018-05-10 20:55 | RADRPT ---
EXAM DATE: 05/10/2018 8:07 PM EDT AGE/SEX: 87 years / Male INDICATIONS: Cough CLINICAL DATA: This is the patient's initial encounter. Patient reports that signs and symptoms have been present for 1 day and indicates a pain score of 0/10. MEDICAL/SURGICAL HISTORY: Cardiovascular disease. Right shoulder fracture CABG. Defibrillator . Right shoulder surgery COMPARISON: C, CHEST SINGLE AP, 04/23/2013. . FINDINGS: Slight right lung base atelectasis and/or infiltrate is seen. The rest of the examination has not annalisa nged. CONCLUSION: Slight right lung base atelectasis and/or infiltrate is seen. Electronically signed by: Lauryn Rosales MD 05/10/2018 8:53 PM EDT
[2018-05-10] MEDS ORDERED: PHYTONADIONE 5 MG TAB PO ONE (21:00)
[2018-05-10] MEDS ORDERED: AZITHROMYCIN INJ 500 MG in SODIUM CHLOR 0.9% 250 ML INJ 250 ML IV ONE (21:15)
[2018-05-10] MEDS ORDERED: cefTRIAXone INJ 1,000 MG in SODIUM CHLORIDE 0.9% INJ 100 ML IV ONE (21:15)
[2018-05-10] MEDS ORDERED: PHYTONADIONE 5 MG/SWFI 5 ML ORAL SYR PO ONE (21:30)
--- NOTE | 2018-05-10 21:38 | EKG ---
Date Performed: 05/10/2018 Time Performed: 18:49:00 PTAGE: 87 years EKG: Sinus rhythm WITH OCCASIONAL SUPRAVENTRICULAR PREMATURE COMPLEXES NONSPECIFIC T-WAVE ABNORMALITY ABNORMAL ECG No significant change from prior electrocardiogram. PREVIOUS TRACING : 04/27/2018 18.08 DOCTOR: Marques Denney Interpretating Date/Time 05/10/2018 21:36:54
[2018-05-10] MEDS ORDERED: ACETAMINOPHEN/HYDROcodone 325 MG/5 MG TAB PO PRN (21:45)
[2018-05-10 22:15] LABS: BILIRUBIN, URINE NEG (NEG); BLOOD, URINE NEG (NEG); GLUCOSE,URINE NEG (NEG); KETONE, URINE 10 mg/dL (NEG); MUCUS URINE FEW /lpf (OCC); NITRITE,URINE NEG (NEG); PH, URINE 5.5 (5.0-8.5); URINE COLOR YELLOW (YELLW/STRAW); URINE LEUKOCYTE ESTERASE NEG (NEG)
[2018-05-10 23:50] VITALS: BP 144/63; PULSE 84; RESP 22; TEMP 97.5; O2SAT 94
[2018-05-11] VITALS (9 sets, daily range): BP systolic 121–160; BP diastolic 58–72; PULSE 67–84; RESP 18–20; TEMP 97.3–98.6; O2SAT 93–98
[2018-05-11] MEDS: TEMAZEPAM 15 MG CAP PO PRN ×2 (00:24→21:27)
[2018-05-11] MEDS: ALBUTEROL SULFATE 90 MCG/ACT HFA 8 GM INHALER INH PRN ×2 (00:24→09:54)
[2018-05-11 06:55] LABS: INTERNATIONAL NORMALIZED RATIO 3.1 RATIO; PROTHROMBIN TIME - PATIENT 31.3 SEC (9.8-11.6)
[2018-05-11 06:57] LABS: AUTOMATED NEUTROPHIL # 10.7 TH/MM3 (1.8-7.7); BASOPHIL # 0.1 TH/MM3 (0-0.2); BASOPHIL % 0.9 % (0.0-2.0); EOSINOPHIL # 0.2 TH/MM3 (0-0.4); EOSINOPHIL % 1.4 % (0.0-4.0); HEMOGLOBIN 7.9 GM/DL (13.0-17.0); LYMPH % 12.8 % (9.0-44.0); LYMPHOCYTE # 1.8 TH/MM3 (1.0-4.8); MEAN CELL VOLUME 89.2 FL (80.0-100.0); MEAN CORPUSCULAR HEMOGLOBIN 29.5 PG (27.0-34.0); MEAN PLATELET VOLUME 7.6 FL (7.0-11.0); MONO % 7.7 % (0.0-8.0); MONOCYTE # 1.1 TH/MM3 (0-0.9); NEUT % 77.2 % (16.0-70.0); PLATELET COUNT 457 TH/MM3 (150-450); RED BLOOD COUNT 2.69 MIL/MM3 (4.50-5.90); RED CELL DISTRIBUTION WIDTH 15.5 % (11.6-17.2); WHITE BLOOD COUNT 13.9 TH/MM3 (4.0-11.0)
[2018-05-11 07:21] LABS: BICARBONATE 20.8 MEQ/L (21.0-32.0); CALCIUM 7.9 MG/DL (8.5-10.1); CREATININE 0.58 MG/DL (0.60-1.30)
[2018-05-11] MEDS: LEVOTHYROXINE SODIUM 50 MCG TAB PO SCH (08:18)
[2018-05-11] MEDS: METOPROLOL TARTRATE 50 MG TAB PO SCH ×2 (08:18→21:26)
[2018-05-11] MEDS: PRAVASTATIN SOD 40 MG TAB PO SCH (08:18)
[2018-05-11] MEDS: amLODIPine BESYLATE 5 MG TAB PO SCH (08:18)
[2018-05-11] MEDS: CALCIUM/VITAMIN D 250 MG/125 U TAB PO SCH ×2 (08:19→21:27)
[2018-05-11] MEDS: BUDESONIDE-FORMOTEROL 160/4.5 MCG INHALER INH SCH ×3 (08:26→21:27)
--- NOTE | 2018-05-11 10:23 | HHI.HP ---
HPI Service CP Hospitalists Primary Care Physician Tobin Winkler MD Admission Diagnosis Anemia, Supratherapeutic INR, melena, PNA Chief Complaint: snet by SNF for elevated INR and decreased hgb Travel History International Travel<30 Days: No Contact w/Intl Traveler <30 Da: No Traveled to Known Affected Are: No History of Present Illness This an 87-year-old male patient with past medical history which includes atrial fibrillation, DVT, PE, chronic kidney disease stage III, CHF, COPD, hyperlipidemia, hypertension, hypothyroidism, arthritis in multiple joints, paroxysmal ventricular tachycardia and recent right humeral fracture status post fall. Patient was admitted to [facility] 04/27/2018 after suffering a mechanical fall which resulted in displaced fracture of the right humerus pain. 04/29/2018 patient underwent open reduction internal fixation of right proximal humerus repair of supraspinatus rotator cuff tear with Dr. Richard. Patient [facility] to [facility] for [facility]-term rehab. Per ER documentation laboratory data at [facility] revealed INR in the sevens and low H&H therefore patient was sent to [facility] for further evaluation and treatment. While in the ER patient was given vitamin K 5 mg and started on Rocephin and azithromycin for suspected pneumonia. Chest x-ray reveals slight right lung base atelectasis and/or infiltrate is seen. Patient reports feeling well and offers no specific complaints. Patient denies chest pain, shortness of breath, cough, nausea, vomiting, diarrhea, constipation, fevers or chills. Patient specifically denies bright red blood per rectum or bloody stools. Patient does endorse dark/black stools reports this is normal for him as he takes iron supplementation. Review of Systems Constitutional: DENIES: Fatigue, Fever, Chills Respiratory: DENIES: Cough, Sputum production, Shortness of breath Cardiovascular: DENIES: Chest pain, Palpitations, Dyspnea on Exertion Gastrointestinal: COMPLAINS OF: Black stools, DENIES: Abdominal pain, Bloody stools, BRB per rectum, Nausea, Vomiting Neurologic: DENIES: Headache, Localized weakness Psychiatric: DENIES: Anxiety, Confusion, Depression Past Family Social History Past Medical History Atrial fibrillation Chronic DVT CKD stage III CHF COPD Hyperlipidemia Hypertension Hypothyroidism Osteoarthritis of multiple joints Paroxysmal ventricular tachyarrhythmia History of pulmonary embolism Past Surgical History 04/29/18 open reduction internal fixation of right proximal humerus repair of supraspinatus rotator cuff tear with Dr. Richard CABG 4 vessels September 2000 Cataract surgery Cholecystectomy Pilonidal cyst resection Vasectomy Tonsillectomy and adenoidectomy TURP Reported Medications Calcium 600+D 200 (Calcium Carbonate-Vitamin D) 600-200 Mg-Unit Tab 1 Tab PO BID Vitamin D3 (Cholecalciferol) 2,000 Unit Cap 2,000 Units PO DAILY Ergocalciferol 50,000 Unit Cap 50,000 Units PO Q7D Hydrocodone-Acetaminophen 7.5 Mg-325 Mg Tab 1 Tab PO Q4H PRN Ferrous Sulfate 325 Mg (65 Mg Iron) Tablet 325 Mg PO DAILY Advair Diskus Inh (Fluticasone-Salmeterol Inh) 250-50 Mcg/Blist Aer 1 Puff INH BID Rinse mouth after use. Levothyroxine (Levothyroxine Sodium) 50 Mcg Tab 50 Mcg PO DAILY Lovastatin 40 Mg Tab 40 Mg PO DAILY Metoprolol Tartrate 50 Mg Tab 50 Mg PO BID Coumadin (Warfarin) 5 Mg Tab 5 Mg PO DIRECTED 5 MG THU, THU, THU 2.5 MG THU, , THU, SUN Aspirin Children's (Aspirin) 81 Mg Chew 81 Mg CHEW DAILY Amlodipine (Amlodipine Besylate) 2.5 Mg Tab 2.5 Mg PO DAILY Proair Hfa 8.5 GM Inh (Albuterol Sulfate) 90 Mcg/Act Aer 2 Puff INH Q6H PRN 108 mcg/actuation Allergies: Coded Allergies: No Known Allergies (Verified Allergy, Unknown, 05/10/18) Family History Mother had coronary artery disease and stroke but overall family history noncontributory at this point Social History 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 Previously smoked tobacco but quit in 1973 after approximately 20 years of smoking No alcohol use and lives with his of 63 yrs Physical Exam Vital Signs Vital Signs Date Time Temp Pulse Resp B/P (MAP) Pulse Ox O2 Delivery O2 Flow Rate FiO2 05/11/18 08:00 98.1 79 20 142/66 (91) 96 05/11/18 08:00 78 05/11/18 07:00 Room Air 05/11/18 04:27 97.9 72 20 160/72 (101) 95 05/11/18 00:23 97.3 84 20 157/67 (97) 93 05/10/18 23:50 97.5 84 22 144/63 (90) 94 05/10/18 23:00 Room Air 05/10/18 22:36 05/10/18 19:00 79 16 128/74 (92) 97 Room Air 05/10/18 18:42 71 24 166/69 (101) 96 Room Air 05/10/18 17:00 97.6 76 16 133/64 (87) 98 Physical Exam GENERAL: This is a well-nourished, well-developed patient, in no apparent distress. SKIN: No rashes, ecchymoses or lesions. Cool and dry. HEAD: Atraumatic. Normocephalic. No temporal or scalp tenderness. EYES: Extraocular motions intact. No scleral icterus. No injection or drainage. CARDIOVASCULAR: Regular rate and rhythm RESPIRATORY: Clear to auscultation. Breath sounds equal bilaterally. GASTROINTESTINAL: Abdomen soft, non-tender, nondistended. MUSCULOSKELETAL: Extremities without clubbing, cyanosis, or edema. No joint tenderness, effusion, or edema noted. No calf tenderness. Negative Homans sign bilaterally. NEUROLOGICAL: Awake and alert. No focal deficits appreciated. Motor and sensory grossly within normal limits. Five out of 5 muscle strength in all muscle groups. Normal speech. Laboratory Laboratory Tests Test 05/10/18 18:55 05/10/18 21:35 05/11/18 06:00 White Blood Count 16.9 13.9 Red Blood Count 2.83 2.69 Hemoglobin 8.1 7.9 Hematocrit 25.3 24.0 Mean Corpuscular Volume 89.4 89.2 Mean Corpuscular Hemoglobin 28.7 29.5 Mean Corpuscular Hemoglobin Concent 32.1 33.0 Red Cell Distribution Width 15.8 15.5 Platelet Count 463 457 Mean Platelet Volume 7.5 7.6 Neutrophils (%) (Auto) 80.6 77.2 Lymphocytes (%) (Auto) 10.9 12.8 Monocytes (%) (Auto) 6.5 7.7 Eosinophils (%) (Auto) 1.2 1.4 Basophils (%) (Auto) 0.8 0.9 Neutrophils # (Auto) 13.6 10.7 Lymphocytes # (Auto) 1.9 1.8 Monocytes # (Auto) 1.1 1.1 Eosinophils # (Auto) 0.2 0.2 Basophils # (Auto) 0.1 0.1 CBC Comment DIFF FINAL DIFF FINAL Differential Comment Prothrombin Time 50.2 31.3 Prothromb Time International Ratio 5.0 3.1 Activated Partial Thromboplast Time 48.2 Blood Urea Nitrogen 16 12 Creatinine 0.70 0.58 Random Glucose 86 69 Total Protein 6.2 Albumin 2.4 Calcium Level 8.1 7.9 Magnesium Level 2.4 Alkaline Phosphatase 83 Aspartate Amino Transf (AST/SGOT) 38 Alanine Aminotransferase (ALT/SGPT) 22 Total Bilirubin 1.4 Sodium Level 136 137 Potassium Level 4.9 4.0 Chloride Level 105 105 Carbon Dioxide Level 22.5 20.8 Anion Gap 9 11 Estimat Glomerular Filtration Rate 107 133 Urine Color YELLOW Urine Turbidity CLEAR Urine pH 5.5 Urine Specific [place] 1.023 Urine Protein TRACE Urine Glucose (UA) NEG Urine Ketones 10 Urine Occult Blood NEG Urine Nitrite NEG Urine Bilirubin NEG Urine Urobilinogen LESS THAN 2.0 Urine Leukocyte Esterase NEG Urine RBC 1 Urine WBC 1 Urine Mucus FEW Microscopic Urinalysis Comment CULT NOT INDICATED Date/Time Source Procedure Growth Status 05/10/18 19:00 Blood Peripheral Aerobic Blood Culture Pending Received 05/10/18 19:00 Blood Peripheral Anaerobic Blood Culture Pending Received Result Diagram: 05/11/18 0600 05/11/18 0600 Imaging Last Impressions Chest X-Ray 05/10/18 0000 Signed Impressions: CONCLUSION: Slight right lung base atelectasis and/or infiltrate is seen. Abdomen/Pelvis CT 05/10/18 0000 Signed Impressions: CONCLUSION: 1. Cystic mass in the head of the pancreas with questionable separate area in the region of the uncinate process could be benign cysts such as a pseudocyst, however cystic neoplasm is not excluded at this time. 2. Hepatic, renal cysts and borderline AAA. Caprini VTE Risk Assessment Caprini VTE Risk Assessment: Mod/High Risk (score >= 2) Caprini Risk Assessment Model Point Value = 1 Point Value = 2 Point Value = 3 Point Value = 5 Age 41-60 Minor surgery BMI > 25 kg/m2 Swollen legs Varicose veins or History of unexplained or recurrent spontaneous Oral contraceptives or hormone replacement Sepsis (< 1 month) Serious lung disease, including pneumonia (< 1 month) Abnormal pulmonary function Acute myocardial infarction Congestive heart failure (< 1 month) History of inflammatory bowel disease Medical patient at bed rest Age 61-74 Arthroscopic surgery Major open surgery (> 45 min) Laparoscopic surgery (> 45 min) Malignancy Confined to bed (> 72 hours) Immobilizing plaster cast Central venous access Age >= 75 History of VTE Family history of VTE Factor V Leiden Prothrombin [id number] Lupus anticoagulant Anticardiolipin antibodies Elevated serum homocysteine Heparin-induced thrombocytopenia Other congenital or acquired thrombophilia Stroke (< 1 month) Elective arthroplasty Hip, pelvis, or leg fracture Acute spinal cord injury (< 1 month) Prophylaxis Regimen Total Risk Factor Score Risk Level Prophylaxis Regimen 0-1 Low Early ambulation 2 Moderate Order ONE of the following: *Sequential Compression Device (SCD) *Heparin 5000 units SQ BID 3-4 Higher Order ONE of the following medications: *Heparin 5000 units SQ TID *Enoxaparin/Lovenox 40 mg SQ daily (WT < 150 kg, CrCl > 30 mL/min) *Enoxaparin/Lovenox 30 mg SQ daily (WT < 150 kg, CrCl > 10-29 mL/min) *Enoxaparin/Lovenox 30 mg SQ BID (WT < 150 kg, CrCl > 30 mL/min) AND/OR *Sequential Compression Device (SCD) 5 or more Highest Order ONE of the following medications: *Heparin 5000 units SQ TID (Preferred with Epidurals) *Enoxaparin/Lovenox 40 mg SQ daily (WT < 150 kg, CrCl > 30 mL/min) *Enoxaparin/Lovenox 30 mg SQ daily (WT < 150 kg, CrCl > 10-29 mL/min) *Enoxaparin/Lovenox 30 mg SQ BID (WT < 150 kg, CrCl > 30 mL/min) AND *Sequential Compression Device (SCD) Assessment and Plan Problem List: (1) Anemia ICD Codes: D64.9 - Anemia, unspecified Status: Acute Plan: Anemia Possible GI bleed This an 87-year-old male patient with past medical history which includes atrial fibrillation, DVT, PE, chronic kidney disease stage III, CHF, COPD, hyperlipidemia, hypertension, hypothyroidism, arthritis in multiple joints, paroxysmal ventricular tachycardia and recent right humeral fracture status post fall. Patient was admitted to [facility] 04/27/2018 after suffering a mechanical fall which resulted in displaced fracture of the right humerus. On 04/29/2018 patient underwent open reduction internal fixation of right proximal humerus repair of supraspinatus rotator cuff tear with Dr. Richard. [facility] to [facility] for [facility] rehab. Per ER documentation laboratory data at significant revealed INR in the sevens and low H&H therefore patient was sent to [facility] for further evaluation and treatment. While in the ER patient was given vitamin K 5 mg and started on Rocephin and azithromycin for suspected pneumonia. Chest x-ray reveals slight right lung base atelectasis and/or infiltrate is seen. Patient also had Hemoccult positive stools Protonix 40 mg IV twice daily Hold Coumadin GI consultation, possible GI bleeding, patient does endorse black stool he is also on iron. Patient anemia could be post-op as well as GI source. liquid diet recheck CBC in AM Supratherapeutic INR On arrival to the emergency department patient's INR was 5.0 Emergency department gave vitamin K 5 mg repeat INR 3.1 Check INR in a.m. Continue to hold Coumadin Pneumonia Chest x-ray reviewed and reveals slight right lung base atelectasis and/or infiltrate Leukocytosis on admission was 16.9 with neutrophils 80% Patient started on Rocephin and azithromycin will start patient on Levaquin Chronic atrial fibrillation Hold Coumadin due to supratherapeutic INR Continue metoprolol 50 mg twice daily for rate control Hypertension Continue patient's home metoprolol 50 mg twice daily, amlodipine 2.5 mg daily with hold parameters (2) Supratherapeutic INR ICD Codes: R79.1 - Abnormal coagulation profile Status: Acute (3) Pneumonia ICD Codes: J18.9 - Pneumonia, unspecified organism Status: Acute (4) Atrial fibrillation ICD Codes: I48.91 - Unspecified atrial fibrillation Status: Chronic (5) Hypertension ICD Codes: I10 - Essential (primary) hypertension Status: Chronic Problem Qualifiers (1) Anemia: Qualified Codes: D64.9 - Anemia, unspecified (2) Pneumonia: Qualified Codes: J18.1 - Lobar pneumonia, unspecified organism Rosemary Cobos May 11, 2018 10:23
--- NOTE | 2018-05-11 12:08 | PD.CONS ---
HPI History of Present Illness This is a 87 year old yo M with PMH significant for a-fib, DVT, PE, CKD, CHF, COPD, hyperlipidemia, HTN, hypothyroidism, arthritis, paroxysmal ventricular tachycardia and recent right humeral fracture after a fall who has been in rehab. Pt is a poor historian and states that he was told by the hospital to come back. However, according to the chart pt was sent for evaluation of anemia and elevated INR, pt has been on Coumadin. Our service has been consulted for possible GIB. Pt denies any GI symptoms at this time including nausea, vomiting , abdominal pain, blood in his stool (although he states he does not check his stool). According to chart pt did earlier report black stools which he stated was normal due to iron supplements. Pt denies any history of anemia, however hgb during previous admission was 8.3. Denies any previous EGD or colonoscopy. (Jessika Guzman) PFSH Past Medical History a-fib DVT PE CKD CHF COPD Hyperlipidemia HTN Hypothyroidism Arthritis Paroxysmal ventricular tachycardia Right humeral fracture (Jessika Guzman) Coded Allergies: No Known Allergies (Verified Allergy, Unknown, 05/10/18) Review of Systems Gastrointestinal: COMPLAINS OF: Black stools, DENIES: Abdominal pain, Bloody stools, Constipation, Diarrhea, Nausea, Vomiting, Difficulty Swallowing, Odynophagia, Heartburn, Hematemesis (Jessika Guzman) GI Exam Vitals I&O Vital Signs Date Time Temp Pulse Resp B/P (MAP) Pulse Ox O2 Delivery O2 Flow Rate FiO2 05/11/18 08:00 98.1 79 20 142/66 (91) 96 05/11/18 08:00 78 05/11/18 07:00 Room Air 05/11/18 04:27 97.9 72 20 160/72 (101) 95 05/11/18 00:23 97.3 84 20 157/67 (97) 93 05/10/18 23:50 97.5 84 22 144/63 (90) 94 05/10/18 23:00 Room Air 05/10/18 22:36 05/10/18 19:00 79 16 128/74 (92) 97 Room Air 05/10/18 18:42 71 24 166/69 (101) 96 Room Air 05/10/18 17:00 97.6 76 16 133/64 (87) 98 I/O 05/10/18 05/10/18 05/10/18 05/11/18 05/11/18 05/11/18 07:00 15:00 23:00 07:00 15:00 23:00 Intake Total 240 ml Output Total 250 ml Balance -10 ml Intake Oral 240 ml Output Urine Total 250 ml # Bowel Movements 1 Imaging Last Impressions Chest X-Ray 05/10/18 0000 Signed Impressions: CONCLUSION: Slight right lung base atelectasis and/or infiltrate is seen. Abdomen/Pelvis CT 05/10/18 0000 Signed Impressions: CONCLUSION: 1. Cystic mass in the head of the pancreas with questionable separate area in the region of the uncinate process could be benign cysts such as a pseudocyst, however cystic neoplasm is not excluded at this time. 2. Hepatic, renal cysts and borderline AAA. Laboratory Test 05/10/18 18:55 05/10/18 21:35 05/11/18 06:00 White Blood Count 16.9 TH/MM3 13.9 TH/MM3 Red Blood Count 2.83 MIL/MM3 2.69 MIL/MM3 Hemoglobin 8.1 GM/DL 7.9 GM/DL Hematocrit 25.3 % 24.0 % Mean Corpuscular Volume 89.4 FL 89.2 FL Mean Corpuscular Hemoglobin 28.7 PG 29.5 PG Mean Corpuscular Hemoglobin Concent 32.1 % 33.0 % Red Cell Distribution Width 15.8 % 15.5 % Platelet Count 463 TH/MM3 457 TH/MM3 Mean Platelet Volume 7.5 FL 7.6 FL Neutrophils (%) (Auto) 80.6 % 77.2 % Lymphocytes (%) (Auto) 10.9 % 12.8 % Monocytes (%) (Auto) 6.5 % 7.7 % Eosinophils (%) (Auto) 1.2 % 1.4 % Basophils (%) (Auto) 0.8 % 0.9 % Neutrophils # (Auto) 13.6 TH/MM3 10.7 TH/MM3 Lymphocytes # (Auto) 1.9 TH/MM3 1.8 TH/MM3 Monocytes # (Auto) 1.1 TH/MM3 1.1 TH/MM3 Eosinophils # (Auto) 0.2 TH/MM3 0.2 TH/MM3 Basophils # (Auto) 0.1 TH/MM3 0.1 TH/MM3 CBC Comment DIFF FINAL DIFF FINAL Differential Comment Prothrombin Time 50.2 SEC 31.3 SEC Prothromb Time International Ratio 5.0 RATIO 3.1 RATIO Activated Partial Thromboplast Time 48.2 SEC Blood Urea Nitrogen 16 MG/DL 12 MG/DL Creatinine 0.70 MG/DL 0.58 MG/DL Random Glucose 86 MG/DL 69 MG/DL Total Protein 6.2 GM/DL Albumin 2.4 GM/DL Calcium Level 8.1 MG/DL 7.9 MG/DL Magnesium Level 2.4 MG/DL Alkaline Phosphatase 83 U/L Aspartate Amino Transf (AST/SGOT) 38 U/L Alanine Aminotransferase (ALT/SGPT) 22 U/L Total Bilirubin 1.4 MG/DL Sodium Level 136 MEQ/L 137 MEQ/L Potassium Level 4.9 MEQ/L 4.0 MEQ/L Chloride Level 105 MEQ/L 105 MEQ/L Carbon Dioxide Level 22.5 MEQ/L 20.8 MEQ/L Anion Gap 9 MEQ/L 11 MEQ/L Estimat Glomerular Filtration Rate 107 ML/MIN 133 ML/MIN Urine Color YELLOW Urine Turbidity CLEAR Urine pH 5.5 Urine Specific [place] 1.023 Urine Protein TRACE mg/dL Urine Glucose (UA) NEG mg/dL Urine Ketones 10 mg/dL Urine Occult Blood NEG Urine Nitrite NEG Urine Bilirubin NEG Urine Urobilinogen LESS THAN 2.0 MG/DL Urine Leukocyte Esterase NEG Urine RBC 1 /hpf Urine WBC 1 /hpf Urine Mucus FEW /lpf Microscopic Urinalysis Comment CULT NOT INDICATED Date/Time Source Procedure Growth Status 05/10/18 19:00 Blood Peripheral Aerobic Blood Culture - Preliminary NO GROWTH IN 1 DAY Resulted 05/10/18 19:00 Blood Peripheral Anaerobic Blood Culture - Preliminary NO GROWTH IN 1 DAY Resulted Physical Examination HEENT: Normocephalic; atraumatic CHEST: Even/unlabored CARDIAC: Irregular rate and rhythm ABDOMEN: Soft, nondistended, nontender; bowel sounds active EXTREMITIES: No clubbing, cyanosis, or edema. SKIN: Normal; no rash; no jaundice. NETWORK ENGINEER ADMINISTRATOR: Alert and oriented times three. (Jessika Guzman) Assessment and Plan Plan Assessment: - Anemia, normocytic Compared to previous admission, hgb was 8.3 on 04/29 Pt denies any obvious GIB, although the H&P note states that pt was complaining of black stools which he stated was normal because he is on iron supplements. Denies nausea, vomiting, acid reflux, heartburn, abdominal pain. Does not think he has ever had EGD or colonoscopy. Of note pt is on Coumadin for a fib, history of DVT and PE- INR was 5 on admission S/P Vit K is currently 3.1 Pt refusing endoscopic procedures. Our service will sign off, please reconsult if needed Plan: Monitor H/H Pt refusing endoscopic procedures Our service will sign off, please reconsult as needed Pt has been seen and examined by myself and Dr. Alexandre and this note is written on his behalf (Jessika Guzman) Physician Comments Seen with Jessika, plan as above. Refusing work up at this admission, requesting work up as outpatient. Please notify us if change in plans. Thank you for the consult. (Joseph Alexandre MD) Jessika Guzman May 11, 2018 12:08 Joseph Alexandre MD May 11, 2018 23:12
[2018-05-11] MEDS: LEVOFLOXACIN 500 MG PREMIX INJ 100 ML IV SCH (12:34)
[2018-05-11] MEDS: PANTOPRAZOLE SODIUM 40 MG VIAL IV PUSH SCH (12:35)
[2018-05-11 13:21] LABS: HEMATOCRIT 24.6 % (39.0-51.0); HEMOGLOBIN 8.2 GM/DL (13.0-17.0)
[2018-05-11] MEDS ORDERED: PEG (High)/E-LYTE SOLN 4000 ML BTL PO ONE (16:00)
[2018-05-12] VITALS (7 sets, daily range): BP systolic 129–160; BP diastolic 57–70; PULSE 58–75; RESP 16–18; TEMP 97.1–98.8; O2SAT 95–98
[2018-05-12] MEDS: PANTOPRAZOLE SODIUM 40 MG VIAL IV PUSH SCH ×2 (01:14→13:28)
[2018-05-12 04:07] LABS: HEMATOCRIT 23.8 % (39.0-51.0); MEAN CELL VOLUME 90.5 FL (80.0-100.0); MEAN CORPUSCULAR HEMOGLOBIN 30.3 PG (27.0-34.0); MEAN CORPUSCULAR HGB CONC 33.5 % (32.0-36.0); MEAN PLATELET VOLUME 7.5 FL (7.0-11.0); PLATELET COUNT 426 TH/MM3 (150-450); RED BLOOD COUNT 2.63 MIL/MM3 (4.50-5.90); RED CELL DISTRIBUTION WIDTH 15.7 % (11.6-17.2); WHITE BLOOD COUNT 12.8 TH/MM3 (4.0-11.0)
[2018-05-12 04:18] LABS: BICARBONATE 20.8 MEQ/L (21.0-32.0); CALCIUM 7.9 MG/DL (8.5-10.1); CREATININE 0.71 MG/DL (0.60-1.30); INTERNATIONAL NORMALIZED RATIO 1.6 RATIO; PROTHROMBIN TIME - PATIENT 16.2 SEC (9.8-11.6)
[2018-05-12 04:48] LABS: BANDS 2 % (0-6); LYMPHOCYTES 13 % (9-44); MONOCYTES 5 % (0-8); MYELOCYTES 1 % (0-0); NEUTROPHIL # MANUAL DIFF 10.4 TH/MM3 (1.8-7.7); POLYS (SEG NEUTROPHILS) 78 % (16-70)
[2018-05-12 04:49] LABS: ACANTHOCYTES OCC (NORMAL)
[2018-05-12] MEDS: LEVOTHYROXINE SODIUM 50 MCG TAB PO SCH (07:30)
[2018-05-12] MEDS: PRAVASTATIN SOD 40 MG TAB PO SCH (08:54)
[2018-05-12] MEDS: METOPROLOL TARTRATE 50 MG TAB PO SCH (08:54)
[2018-05-12] MEDS: CALCIUM/VITAMIN D 250 MG/125 U TAB PO SCH (08:54)
[2018-05-12] MEDS: BUDESONIDE-FORMOTEROL 160/4.5 MCG INHALER INH SCH (08:54)
[2018-05-12] MEDS: amLODIPine BESYLATE 5 MG TAB PO SCH (08:54)
--- NOTE | 2018-05-12 09:18 | HHI.PR ---
Subjective Remarks asking for dc to snf refusing any further w/up just wants to to back to snf. Objective Vitals heart irreg lung course bs abd s/nt ext no edema Vital Signs Date Time Temp Pulse Resp B/P (MAP) Pulse Ox O2 Delivery O2 Flow Rate FiO2 05/12/18 04:00 97.9 60 16 154/65 (94) 97 05/12/18 04:00 64 05/12/18 00:00 98.8 58 18 136/59 (84) 95 05/12/18 00:00 64 05/11/18 20:00 79 05/11/18 20:00 Room Air 05/11/18 20:00 98.6 74 18 131/62 (85) 98 05/11/18 18:00 67 05/11/18 16:00 97.7 76 20 133/58 (83) 95 05/11/18 12:00 97.9 68 20 121/60 (80) 96 05/11/18 12:00 71 Result Diagram: 05/12/18 0340 05/12/18 0340 Imaging Last Impressions Chest X-Ray 05/10/18 0000 Signed Impressions: CONCLUSION: Slight right lung base atelectasis and/or infiltrate is seen. Abdomen/Pelvis CT 05/10/18 0000 Signed Impressions: CONCLUSION: 1. Cystic mass in the head of the pancreas with questionable separate area in the region of the uncinate process could be benign cysts such as a pseudocyst, however cystic neoplasm is not excluded at this time. 2. Hepatic, renal cysts and borderline AAA. 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 Patient was admitted to [facility] 04/27/2018 after suffering a mechanical fall which resulted in displaced fracture of the right humerus. On 04/29/2018 patient underwent open reduction internal fixation of right proximal humerus repair of supraspinatus rotator cuff tear with Dr. Richard. [facility]. Per ER documentation laboratory data at significant revealed INR in the sevens and low H&H therefore patient was sent to [facility] for further evaluation and treatment. While in the ER patient was given vitamin K 5 mg and started on Rocephin and azithromycin for suspected pneumonia. Chest x-ray reveals slight right lung base atelectasis and/or infiltrate is seen. Patient also had Hemoccult positive stools Protonix 40 mg IV twice daily Pt not clearly with gib. heme pos/black stool but was on iron. He refused egd/ colonoscopy and nursing says stool looks more nml w/out the iron tablet. He denies any gi symptom He denies dizziness and not interested in prbc. I also discussed with cystic change on pancreas and possiblility of benign vs malignancy change. He doesn't want any further w/up of this issue. dc back to snf. resume his coumadin. cont ppi. Supratherapeutic INR On arrival to the emergency department patient's INR was 5.0 Emergency department gave vitamin K 5 mg repeat INR 3.1 Pneumonia Chest x-ray reviewed and reveals slight right lung base atelectasis and/or infiltrate Leukocytosis on admission was 16.9 with neutrophils 80% Patient started on Rocephin and azithromycin will start patient on Levaquin Chronic atrial fibrillation Continue metoprolol 50 mg twice daily for rate control Hypertension Continue patient's home metoprolol 50 mg twice daily, amlodipine 2.5 mg daily with hold parameters (2) Supratherapeutic INR ICD Codes: R79.1 - Abnormal coagulation profile Status: Acute (3) Pneumonia ICD Codes: J18.9 - Pneumonia, unspecified organism Status: Acute (4) Atrial fibrillation ICD Codes: I48.91 - Unspecified atrial fibrillation Status: Chronic (5) Hypertension ICD Codes: I10 - Essential (primary) hypertension Status: Chronic Problem Qualifiers (1) Anemia: Qualified Codes: D64.9 - Anemia, unspecified (2) Pneumonia: Qualified Codes: J18.1 - Lobar pneumonia, unspecified organism Everardo Archibald MD May 12, 2018 09:18
[2018-05-12] MEDS ORDERED: HYDR-3580 PO (09:34)
[2018-05-12] MEDS ORDERED: ENOX40P SQ (09:34)
[2018-05-12] MEDS ORDERED: LEVO500T8 PO (09:34)
--- NOTE | 2018-05-12 09:35 | HHI.DCPOC ---
Discharge Care Plan Diagnosis: (1) Anemia (2) Supratherapeutic INR (3) Pancreatic cyst (4) Pneumonia (5) Atrial fibrillation (6) Hypertension (7) Hypothyroidism (8) COPD (chronic obstructive pulmonary disease) Goals to Promote Your Health * To prevent worsening of your condition and complications * To maintain your health at the optimal level Directions to Meet Your Goals Take your medications as prescribed Follow your dietary instruction Follow activity as directed Keep your appointments as scheduled Take your immunizations and boosters as scheduled If your symptoms worsen call your PCP, if no PCP go to Urgent Care Center or Emergency Room Smoking is Dangerous to Your Health. Avoid second hand smoke Call the 24-hour hour crisis hotline for domestic abuse at Everardo Archibald MD May 12, 2018 09:35
[2018-05-12] MEDS: LEVOFLOXACIN 500 MG PREMIX INJ 100 ML IV SCH (13:27)
== END 2018-05-12 16:47 | DRG 811 ==
LOC: NEPC 16:31 → NEDA 21:36 → N04A 22:32
PROVIDERS: ADMIT Hospitalist; ATTEND Hospitalist
DX: D64.9 Anemia, unspecified (principal); J18.9 Pneumonia, unspecified organism; I13.0 Hypertensive heart and chronic kidney disease with heart failure and stage 1 through stage 4 chronic kidney disease, or unspecified chronic kidney disease; K86.2 Cyst of pancreas; I50.9 Heart failure, unspecified; N18.3 Chronic kidney disease, stage 3 (moderate); J44.0 Chronic obstructive pulmonary disease with (acute) lower respiratory infection; I48.2 Chronic atrial fibrillation; R79.1 Abnormal coagulation profile; Z79.01 Long term (current) use of anticoagulants; R19.5 Other fecal abnormalities; E03.9 Hypothyroidism, unspecified; E78.5 Hyperlipidemia, unspecified; Z86.718 Personal history of other venous thrombosis and embolism; Z86.711 Personal history of pulmonary embolism; Z95.1 Presence of aortocoronary bypass graft; Z87.891 Personal history of nicotine dependence
CPT/HCPCS: 71045; 74176; 80048; 80053; 81001; 83735; 85007; 85014; 85018; 85025; 85027; 85610; 85730; 86850; 86900; 86901; 87040; 93005; 99285; C9113; J0456; J0696; J1956; J7050